=== PATIENT | female | born 1965 | race Two or more races ===

== ENCOUNTER 2024-01-28 10:12 | Outpatient (AMB) | payer MEDICAID, SELFPAY ==
--- NOTE | 2024-01-28 10:42 | HO.NEPHOV_ITS ---
Vital Signs 01/28/24 10:44 Height 5 ft 3 in Weight 169 lb BMI 29.9 BP 122/88 Blood Pressure Location Lt brachial Position Sitting Pulse 67 Pulse Source Pulse Oximeter Pulse Oximetry (%) 98 Oxygen Delivery Method Room Air Intake Visit Reasons: Follow up/ Confirmed Director Call Required: No Accompanied by: Self / Same As Patient Allergies No Known Allergies Allergy (Verified 01/28/24 10:46) HPI Comments Details: I had the privilege of seeing Miryam in consultation for taking over her renal transplant care. She had H/O donor transplant many years ago. She denies any H/O AMR or cellular rejection. She is compliant with her medications. She does not get recurrent UTI's. Her BP has been at goal. She is not a diabetic. She has no significant proteinuria. She has no side effects for immunosuppression. She has H/O hyperkalemia and had been on potassium lowering medications. Her BP has been at goal. She does not take any NSAID's and maintain good hydration. She does not see a automatic developer annually. She denies nausea, vomiting, diarrhea, chest pain, SOB, PND, orthopnea, pedal edema, urinary symptoms, pain over transplant, weight loss, hematuria. She feels well. [facility] Medical History (Updated 02/22/24 @ 11:02 by Wilmar Walker MD) CKD (chronic kidney disease) ESRD (end stage renal disease) Surgical History (Updated 01/28/24 @ 11:13 by Wilmar Walker MD) History of kidney transplant Family History (Updated 01/28/24 @ 10:51 by Ida Sharma MA) Mother Diabetes Maternal Aunt Cancer Maternal Uncle Cancer Social History (Updated 01/28/24 @ 10:52 by Ida Sharma MA) Alcohol intake: never Patient Tobacco Use Status: Never used Tobacco Physical Exam Vital Signs: Last Vital Signs Pulse 67 01/28/24 10:44 BP 122/88 01/28/24 10:44 Pulse Ox 98 01/28/24 10:44 Oxygen Delivery Method Room Air 01/28/24 10:44 BMI result Body Mass Index 29.9 Const General: comfortable and no acute distress Orientation/consciousness: patient oriented x3 HEENT Head: Yes normocephalic Mouth: Normal oral and palatal mucosa present Eyes EOM: EOMs intact bilaterally Neck Neck: Yes supple Resp Auscultation: clear to auscultation bilaterally Cardio Jugular venous distension: no JVD Rate: regular rate GI Palpation (GI): Soft to palpation Auscultation: normal bowel sounds General: Yes no CVA tenderness Back/Spine/Pelvis Back: no CVA tenderness Skin General skin exam: no rashes or lesions noted Neuro General: patient oriented x3 and moves all extremities Extrem General: Yes no pedal edema Results Reviewed Nephrology Results: No Data to Display Assessment & Plan Assessment & Plan (1) History of kidney transplant: Comment: 2015 Code(s): Z94.0 - Kidney transplant status Category: Surgical (2) Hypertension: Code(s): I10 - Essential (primary) hypertension Category: Medical Qualifiers: Hypertension type: primary hypertension Qualified Code(s): I10 - Essential (primary) hypertension Plan S/P renal transplant; Renal functions had been stable Blood pressure at goal; On MMF and tacrolimus( levels had been OK) No DM or significant proteinuria. No dermatological issues No side effects from immunosuppressive medications; Not on ACEI On Rayaldee. Divalents had been OK. On K lowering medications Tolerating lipid lowering medications.Needs annual dermatology appointment No NSAID's. Good hydration. Sun screens. Follow up labs ordered Discussed about post transplant care; Answered all questions Follow up appointment given Orders: Orders Creatinine 01/28/24 Z94.0 - Kidney transplant status Electrolytes 01/28/24 Z94.0 - Kidney transplant status Calcium 01/28/24 Z94.0 - Kidney transplant status Alanine Aminotransferase 01/28/24 Z94.0 - Kidney transplant status Complete Blood Count Auto Diff 01/28/24 Z94.0 - Kidney transplant status UA and rflx microscopic 01/28/24 Z94.0 - Kidney transplant status Blood Urea Nitrogen 01/28/24 Z94.0 - Kidney transplant status Aspartate Amino Transferase 01/28/24 Z94.0 - Kidney transplant status Tacrolimus Prograf 01/28/24 Z94.0 - Kidney transplant status Vitamin D 25-OH Total 01/28/24 Z94.0 - Kidney transplant status Parathyroid Hormone Intact 01/28/24 Z94.0 - Kidney transplant status Protein Creatinine Ratio, Ur 01/28/24 Z94.0 - Kidney transplant status
[2024-01-28 10:44] VITALS: BP 122/88; PULSE 67; O2SAT 98; BMI 29.9
== END 2024-01-28 11:23 | disposition home or self-care (01) ==
LOC: HO.HKAS 10:12
PROVIDERS: PCP Physician Assistant; Visit Provider Internal Medicine Nephrology
DX: Z94.0 Kidney transplant status (principal); I10 Essential (primary) hypertension
CPT/HCPCS: 99204

== ENCOUNTER → 2024-01-28 10:12 | Outpatient (BNVA) | payer MEDICAID, SELFPAY | PROVIDERS: Visit Provider Internal Medicine Nephrology | DX: I10 Essential (primary) hypertension (principal); Z94.0 Kidney transplant status | CPT/HCPCS: 99202 ==

== ENCOUNTER 2024-05-24 13:58 | Outpatient (AMB) | payer MEDICAID, SELFPAY ==
[2024-05-24 14:16] VITALS: BP 130/80; PULSE 74; O2SAT 97; BMI 29.8
--- NOTE | 2024-05-24 14:16 | HO.NEPHOV_ITS ---
Vital Signs 05/24/24 14:16 Height 5 ft 3 in Weight 168 lb 4 oz BMI 29.8 BP 130/80 Blood Pressure Location Lt brachial Position Sitting Pulse 74 Pulse Source Pulse Oximeter Pulse Oximetry (%) 97 Oxygen Delivery Method Room Air Intake Visit Reasons: 3 Month F/U/ Conf Spike Machine Operator Required: No Accompanied by: Self / Same As Patient Allergies No Known Allergies Allergy (Verified 05/24/24 14:17) HPI Comments Details: I had the privilege of seeing Miryam in follow up of her renal transplant care. She had H/O donor transplant many years ago ( 2016). She denies any H/O AMR or cellular rejection. She is compliant with her medications. She does not get recurrent UTI's. Her BP has been at goal. She is not a diabetic. She has no significant proteinuria. She has no side effects for immunosuppression. She has H/O hyperkalemia and had been on potassium lowering medications. Her BP has been at goal. She does not take any NSAID's and maintain good hydration. She does not see a design technology teacher annually. She denies nausea, vomiting, diarrhea, chest pain, SOB, PND, orthopnea, pedal edema, urinary symptoms, pain over transplant, weight loss, hematuria. She had 3 episodes of front headache with some left eye symptoms lasting for a few hours. Her tacrolimus level has been low . [facility] Medical History (Updated 02/22/24 @ 11:02 by Wilmar Walker MD) CKD (chronic kidney disease) ESRD (end stage renal disease) Surgical History History of kidney transplant Family History Mother Diabetes Maternal Aunt Cancer Maternal Uncle Cancer Social History Alcohol intake: never Patient Tobacco Use Status: Never used Tobacco Physical Exam Vital Signs: Last Vital Signs Pulse 74 05/24/24 14:16 BP 130/80 05/24/24 14:16 Pulse Ox 97 05/24/24 14:16 Oxygen Delivery Method Room Air 05/24/24 14:16 BMI result Body Mass Index 29.8 Const General: comfortable and no acute distress Orientation/consciousness: patient oriented x3 HEENT Head: Yes normocephalic Mouth: Normal oral and palatal mucosa present Eyes EOM: EOMs intact bilaterally Neck Neck: Yes supple Resp Auscultation: clear to auscultation bilaterally Cardio Jugular venous distension: no JVD Rate: regular rate GI Palpation (GI): Soft to palpation Auscultation: normal bowel sounds General: Yes no CVA tenderness Back/Spine/Pelvis Back: no CVA tenderness Skin General skin exam: no rashes or lesions noted Neuro General: patient oriented x3 and moves all extremities Extrem General: Yes no pedal edema Results Reviewed Nephrology Results: No Data to Display Assessment & Plan Assessment & Plan (1) History of kidney transplant: Comment: 2015 Code(s): Z94.0 - Kidney transplant status Category: Surgical (2) Hypertension: Code(s): I10 - Essential (primary) hypertension Category: Medical Qualifiers: Hypertension type: primary hypertension Qualified Code(s): I10 - Essential (primary) hypertension Plan S/P renal transplant; Renal functions had been stable Blood pressure at goal; On MMF and tacrolimus. Increased her envarsus to 2.5 mg No DM or significant proteinuria. No dermatological issues No side effects from immunosuppressive medications; Not on ACEI On Rayaldee- D/Carlos. Divalents had been OK. On K lowering medications Tolerating lipid lowering medications.Needs annual dermatology appointment No NSAID's. Good hydration. Sun screens. Follow up labs ordered Answered all questions; Follow up appointment given PCP needs to see re headaches urgently She needs DEXA scan by PCP Orders: Orders Tacrolimus Prograf 2 Months I10 - Essential (primary) hypertension, Z94.0 - Kidney transplant status Blood Urea Nitrogen 2 Months I10 - Essential (primary) hypertension, Z94.0 - Kidney transplant status Electrolytes 2 Months I10 - Essential (primary) hypertension, Z94.0 - Kidney transplant status Calcium 2 Months I10 - Essential (primary) hypertension, Z94.0 - Kidney transplant status Tacrolimus Prograf 1 Week I10 - Essential (primary) hypertension, Z94.0 - Kidney transplant status Creatinine 2 Months I10 - Essential (primary) hypertension, Z94.0 - Kidney transplant status Tacrolimus Prograf 1 Day I10 - Essential (primary) hypertension, Z94.0 - Kidney transplant status Medications: Changed From tacrolimus XR (Envarsus XR) 2.5 mg PO DAILY To tacrolimus XR (Envarsus XR) 2.5 mg (2.5 x 1 mg) PO DAILY 30 days 75 tabs 1RF Coding Level of Care Code Est Pt Level 4 (42147) Diagnoses History of kidney transplant Z94.0 Primary hypertension I10 Hypertension type: primary hypertension
== END 2024-05-24 15:09 | disposition home or self-care (01) ==
PROVIDERS: PCP Physician Assistant; Visit Provider Internal Medicine Nephrology
DX: Z94.0 Kidney transplant status (principal); I10 Essential (primary) hypertension
CPT/HCPCS: 99214

== ENCOUNTER → 2024-05-24 13:58 | Outpatient (BNVA) | payer MEDICAID, SELFPAY | PROVIDERS: PCP Physician Assistant; Visit Provider Internal Medicine Nephrology | DX: I10 Essential (primary) hypertension (principal); Z94.0 Kidney transplant status; Z79.899 Other long term (current) drug therapy | CPT/HCPCS: 99212 ==

== ENCOUNTER 2024-08-09 13:57 | Outpatient (AMB) | payer MEDICAID, SELFPAY ==
[2024-08-09 14:01] VITALS: BP 118/72; PULSE 73; O2SAT 97; BMI 29.6
--- NOTE | 2024-08-09 14:01 | HO.NEPHOV ---
Vital Signs 08/09/24 14:01 Height 5 ft 3 in Weight 167 lb 4 oz BMI 29.6 BP 118/72 Blood Pressure Location Lt brachial Position Sitting Pulse 73 Pulse Source Pulse Oximeter Pulse Oximetry (%) 97 Oxygen Delivery Method Room Air Intake Visit Reasons: 2 month follow up- Conf Hotel Or Motel Manager Required: No Accompanied by: Self / Same As Patient Allergies No Known Allergies Allergy (Verified 08/09/24 14:03) HPI Comments Details: I had the privilege of seeing Miryam in follow up of her renal transplant care. She had H/O donor transplant many years ago ( 2016). She denies any H/O AMR or cellular rejection. She is compliant with her medications. She does not get recurrent UTI's. Her BP has been at goal. She is not a diabetic. She has no significant proteinuria. She has no side effects for immunosuppression. She has H/O hyperkalemia and had been on potassium lowering medications. Her BP has been at goal. She does not take any NSAID's and maintain good hydration. She does not see a animal rides manager annually. She denies nausea, vomiting, diarrhea, chest pain, SOB, PND, orthopnea, pedal edema, urinary symptoms, pain over transplant, weight loss, hematuria. [facility] Medical History (Updated 02/22/24 @ 11:02 by Wilmar Walker MD) CKD (chronic kidney disease) ESRD (end stage renal disease) Surgical History History of kidney transplant Family History Mother Diabetes Maternal Aunt Cancer Maternal Uncle Cancer Social History Alcohol intake: never Patient Tobacco Use Status: Never used Tobacco Review of Systems Const All systems reviewed & are unremarkable except as noted in HPI and below Physical Exam Vital Signs: Last Vital Signs Pulse 73 08/09/24 14:01 BP 118/72 08/09/24 14:01 Pulse Ox 97 08/09/24 14:01 Oxygen Delivery Method Room Air 08/09/24 14:01 BMI result Body Mass Index 29.6 Const General: comfortable and no acute distress Orientation/consciousness: patient oriented x3 HEENT Head: Yes normocephalic Mouth: Normal oral and palatal mucosa present Eyes EOM: EOMs intact bilaterally Neck Neck: Yes supple Resp Auscultation: clear to auscultation bilaterally Cardio Jugular venous distension: no JVD Rate: regular rate GI Palpation (GI): Soft to palpation Auscultation: normal bowel sounds General: Yes no CVA tenderness Back/Spine/Pelvis Back: no CVA tenderness Skin General skin exam: no rashes or lesions noted Neuro General: patient oriented x3 and moves all extremities Extrem General: Yes no pedal edema Results Reviewed Nephrology Results: No Data to Display Assessment & Plan Assessment & Plan (1) History of kidney transplant: Comment: 2015 Code(s): Z94.0 - Kidney transplant status Category: Surgical (2) Hypertension: Code(s): I10 - Essential (primary) hypertension Category: Medical Qualifiers: Hypertension type: primary hypertension Qualified Code(s): I10 - Essential (primary) hypertension Plan S/P renal transplant; Renal functions had been stable Blood pressure at goal; On MMF and tacrolimus No DM or significant proteinuria. No dermatological issues No side effects from immunosuppressive medications; Not on ACEI On Rayaldee- D/Carlos. Divalents had been OK. On K lowering medications Tolerating lipid lowering medications.Needs annual dermatology appointment No NSAID's. Good hydration. Sun screens. Follow up labs ordered Answered all questions; Follow up appointment given Orders: Orders Vitamin D 25-OH Total 2 Months I10 - Essential (primary) hypertension, Z94.0 - Kidney transplant status Calcium 2 Months I10 - Essential (primary) hypertension, Z94.0 - Kidney transplant status Alanine Aminotransferase 2 Months I10 - Essential (primary) hypertension, Z94.0 - Kidney transplant status Aspartate Amino Transferase 2 Months I10 - Essential (primary) hypertension, Z94.0 - Kidney transplant status UA and rflx microscopic 2 Months I10 - Essential (primary) hypertension, Z94.0 - Kidney transplant status Protein Creatinine Ratio, Ur 2 Months I10 - Essential (primary) hypertension, Z94.0 - Kidney transplant status Lipid Panel 2 Months I10 - Essential (primary) hypertension, Z94.0 - Kidney transplant status Tacrolimus Prograf 2 Months I10 - Essential (primary) hypertension, Z94.0 - Kidney transplant status Creatinine 2 Months I10 - Essential (primary) hypertension, Z94.0 - Kidney transplant status Blood Urea Nitrogen 2 Months I10 - Essential (primary) hypertension, Z94.0 - Kidney transplant status Electrolytes 2 Months I10 - Essential (primary) hypertension, Z94.0 - Kidney transplant status Parathyroid Hormone Intact 2 Months I10 - Essential (primary) hypertension, Z94.0 - Kidney transplant status Phosphorus 2 Months I10 - Essential (primary) hypertension, Z94.0 - Kidney transplant status Medications: New levothyroxine 50 mcg PO DAILY 90 tabs 4RF Coding Level of Care Code Est Pt Level 4 (65255) Diagnoses History of kidney transplant Z94.0 Primary hypertension I10 Hypertension type: primary hypertension
== END 2024-08-09 14:29 | disposition home or self-care (01) ==
PROVIDERS: PCP Physician Assistant; Visit Provider Internal Medicine Nephrology
DX: Z94.0 Kidney transplant status (principal); I10 Essential (primary) hypertension
CPT/HCPCS: 99214

== ENCOUNTER → 2024-08-09 13:57 | Outpatient (BNVA) | payer MEDICAID, SELFPAY | PROVIDERS: PCP Physician Assistant; Visit Provider Internal Medicine Nephrology | DX: I10 Essential (primary) hypertension (principal); Z94.0 Kidney transplant status | CPT/HCPCS: 99212 ==

== ENCOUNTER 2024-10-20 13:13 | Outpatient (AMB) | payer MEDICAID, SELFPAY ==
--- OUTSIDE RECORDS SUMMARY | 2024-10-20 13:15 | XMS_ITS ---
Author Name [facility] Organization Unknown Problems Problem Status Onset Date Problem Type Date of Resoluti on Source Complication of transplanted kidney, unspecified complication active [facility]counter[facility]osisAct [facility]
--- OUTSIDE RECORDS SUMMARY | 2024-10-20 13:15 | XMS_ITS | Continuity of Care Document ---
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 Name Role Phone Sandrine Kerr Primary Care Physician [place] [facility] [place] 10/06/24 [facility] [address] [place] [address]- Attending Physician: Marylou Haynes Admitting Physician: Marylou Haynes Referring Physician: Marylou Haynes Encounter Type: Triage Allergies, Adverse Reactions, Alerts Substance Criticality Severity Reaction Reaction Severity Status Betadine C/O: itching C/O: itching Active Immunizations Given and Recorded Vaccine Date Status Refusal Reason SARS-CoV-2 (COVID-19) mRNA BNT-162b2 vac 05/16/21 Recorded influenza virus vaccine, inactivated 1 08/19/16 Gi juan francisco tetanus-diphtheria toxoids (Td) 2 03/14/15 Given influenza virus vaccine, live 3 06/10/14 Given Zoster Vaccine Live 4 09/16/13 Given pneumococcal 23-valent vaccine 5 08/14/12 Given Measles/Mumps/Rubella Virus Vaccine 6 06/21/12 Giv en Measles/Mumps/Rubella Virus Vaccine 7 05/07/12 Giv en tetanus/diphtheria/pertussis, acel(Tdap) 05/07/12 Given 1Admin Note: received VIS dated 06/08/15 2Admin Note: PCP 3Admin Note: Dialysis 4Admin Note: [facility] 5Admin Note: By Dialysis 6Admin Note: [facility] 7Admin Note: [facility] Medications Afluria Preservative-Free [id number] intramuscular suspension 0.5 mL, Intramuscular, Once, # 0.5 mL, 0 Refills, Soft Stop, 08/19/16 9:00:00 AM EDT Start Date: 08/19/16 Stop Date: 08/20/16 Status: Ordered Quantity: 0.5 Unit: mL Repeat number: 1 aspirin 81 mg oral delayed release tablet 81 mg, By Mouth, Daily, # 30 tablet, Refills 0, Tot. Refills 0, Maintenance, 09/02/24 11:14:00 AM EDT, Route to Pharmacy Electronically, [facility]/pharmacy #[id number], Partial fill upon patient request if the prescription is for a schedule II opioid drug., 155, cm, 09/02/24 10:57:00 EDT, Height, 75.8, kg, 08/31/24 23:28:00 EDT, Dry Weight Start Date: 09/02/24 Status: Ordered Quantity: 30.0 Unit: tablet Repeat number: 1 cyclobenzaprine 10 mg oral tablet 10 mg, 1, tablet, By Mouth, 3 times a day, Refills 0, Maintenance, 04/27/19 1:27:47 PM EDT Start Date: 04/27/19 Status: Ordered Repeat number: 1 Depakote 125 mg oral enteric coated tablet See Instructions, Week 1: 1 tab every night Week 2 and beyond: 2 tabs every night, # 60 tablet, 2 Refills, Maintenance, 09/22/24 1:59:00 PM EST, [facility]/pharmacy #[id number], Partial fill upon patient request if the prescription is for a schedule II opioid drug., 155, cm, 09/06/24 8:48:00 EST, Height, 75.8, kg, 08/31/24 23:28:00 EDT, Dry Weight Start Date: 09/22/24 Status: Ordered Quantity: 60.0 Unit: tablet Repeat number: 3 Envarsus XR 1 mg oral tablet, extended release 2 tablet = 2 mg, By Mouth, Daily in AM, 0 Refills, Maintenance, 09/01/24 1:51:00 AM EDT, Partial fill upon patient request if the prescription is for a schedule II opioid drug. Start Date: 09/01/24 Status: Ordered Repeat number: 1 estradiol 0.1 mg/g vaginal cream = 1 Gm, Vaginally, Daily at bedtime, take every night for two weeks then twice weekly, # 42.5 Gm, 11 Refills, Maintenance, 03/09/23 2:45:00 PM EDT, [facility]/pharmacy #[id number], Partial fill upon patient requestif the prescription is for a schedule II opioid drug., 160.6, cm, 03/09/23 13:56:00 EDT, Height, 76.7, kg, 03/09/23 13:56:00 EDT, Dry Weight Start Date: 03/09/23 Status: Ordered Quantity: 42.5 Unit: g Repeat number: 12 famotidine 20 mg oral tablet 20 mg, 1, tablet, By Mouth, Daily, # 30 tablet, Refills 5, Tot. Refills 5, Maintenance, 03/27/16 9:27:36 AM EDT, Route to Pharmacy Electronically, [facility]/pharmacy #[id number] Start Date: 03/27/16 Stop Date: 09/23/16 Status: Ordered Quantity: 30.0 Unit: tablet Repeat number: 6 gabapentin 100 mg oral capsule 200 mg, 2, capsule, By Mouth, 2 times a day, # 120 capsule, Refills 5, Tot. Refills 5, Maintenance,11/21/16 2:07:42 PM EST, Route to Pharmacy Electronically, [facility]/pharmacy #[id number] Start Date: 11/21/16 Stop Date: 05/20/17 Status: Ordered Quantity: 120.0 Unit: capsule Repeat number: 6 hydrOXYzine hydrochloride 50 mg oral tablet 1 tablet = 50 mg, By Mouth, 4 times a day, 0 Refills, Maintenance, 09/28/17 2:39:25 PM EST Start Date: 09/28/17 Status: Ordered Repeat number: 1 levothyroxine 0.05 mg oral tablet 1 tablet = 50 mcg, By Mouth, Daily, # 30 tablet, 5 Refills, Maintenance, 12/29/16 10:47:18 AM EST, Tablet, [facility]/pharmacy #[id number] Start Date: 12/29/16 Status: Ordered Quantity: 30.0 Unit: tablet Repeat number: 6 LORazepam 0.5 mg oral tablet 1 tablet = 0.5 mg, By Mouth, 3 times a day, 0 Refills, Maintenance, 04/27/19 1:27:36 PM EDT Start Date: 04/27/19 Status: Ordered Repeat number: 1 Magnesium Mineral Support = 400 mg, By Mouth, 2 times a day, 0 Refills, Maintenance, 12/14/23 3:25:00 PM EST, Partial fill upon patient request if the prescription is for a schedule II opioid drug. Start Date: 12/14/23 Status: Ordered Repeat number: 1 meclizine 25 mg oral tablet 1 tablet = 25 mg, By Mouth, 3 times a day, 0 Refills, Maintenance, 05/24/18 2:18:17 PM EDT Start Date: 05/24/18 Status: Ordered Repeat number: 1 metoprolol 50 mg oral tablet, extended release 50 mg, 1, tablet, By Mouth, Daily, # 90 tablet, Refills 4, Tot. Refills 4, Maintenance, 02/10/24 3:52:00 PM EDT, Route to Pharmacy Electronically, [facility]/pharmacy #[id number], Partial fill upon patient requestif the prescription is for a schedule II opioid drug., 161, cm, 02/10/24 15:34:00 EDT, Height, 77.2, kg, 11/27/23 14:56:00 EST, Dry Weight Start Date: 02/10/24 Stop Date: 05/05/25 Status: Ordered Quantity: 90.0 Unit: tablet Repeat number: 5 mycophenolic acid 180 mg oral delayed release tablet 3 tablet = 540 mg, By Mouth, 2 times a day, # 180 tablet, 11 Refills, Maintenance, 02/09/17 4:29:44 PM EDT, EC Tablet, [facility], please deliver Start Date: 02/09/17 Stop Date: 02/04/18 Status: Ordered Quantity: 180.0 Unit: tablet Repeat number: 12 nitroglycerin 0.4 mg sublingual tablet 1 tablet = 0.4 mg, Sublingual, Every 5 minutes, PRN for chest pain, # 100 tablet, 3 Refills, Maintenance, 02/10/24 3:50:00 PM EDT, Tablet, [facility]/pharmacy #[id number], 161, cm, 02/10/24 15:34:00 EDT, Height, 77.2, kg, 11/27/23 14:56:00 EST, Dry Weight Start Date: 02/10/24 Status: Ordered Quantity: 100.0 Unit: tablet Repeat number: 4 Nurtec ODT 75 mg oral tablet, disintegrating See Instructions, PRN as needed for migraine headache, 1 tablet By Mouth Every 24 hours as needed for migraine. not to exceed 75 mg in 24 hours, # 8 tablet, 5 Refills, Maintenance, 10/03/24 9:52:00 AMEST, DIS Tablet, [facility]/pharmacy #[id number], Partial fill upon patient request if the prescription is for aschedule II opioid drug., 155, cm, 09/06/24 8:48:00 EST, Height, 75.8, kg, 08/31/24 23:28:00 EDT, Dry Weight Start Date: 10/03/24 Status: Ordered Quantity: 8.0 Unit: tablet Repeat number: 6 Rayaldee 30 mcg oral capsule, extended release 1 capsule = 30 mcg, By Mouth, Daily at bedtime, 0 Refills, Maintenance, 09/28/17 2:39:08 PM EST Start Date: 09/28/17 Status: Ordered Repeat number: 1 rosuvastatin 5 mg oral tablet TAKE 1 TABLET BY MOUTH EVERY OTHER DAY Start Date: 02/10/24 Status: Ordered Repeat number: 1 traZODone 50 mg oral tablet 50 mg, 1, tablet, By Mouth, Refills 0, Maintenance, 03/22/24 1:31:00 PM EDT, Partial fill upon patient request if the prescription is for a schedule II opioid drug. Start Date: 03/22/24 Status: Ordered Repeat number: 1 valtassa valtassa, See Instructions, Refills 0, Maintenance, Every other day, 08/09/18 1:34:52 PM EDT, Compound Start Date: 08/09/18 Status: Ordered Repeat number: 1 vibegron 75 mg oral tablet 1 tablet = 75 mg, By Mouth, Daily, # 30 tablet, 5 Refills, Maintenance, 07/29/24 3:58:00 PM EDT, [facility]/pharmacy #[id number], Partial fill upon patient request if the prescription is for a schedule II opioid drug., 161, cm, 07/14/24 15:04:00 EDT, Height, 77.2, kg, 11/27/23 14:56:00 EST, Dry Weight Start Date: 07/29/24 Status: Ordered Quantity: 30.0 Unit: tablet Repeat number: 6 Problem List Condition Confirmation Course Effective Dates Status Health St atus Informant Chronic insomnia Confirmed Active Chronic kidney disease (CKD), dialysis modality undecided Confirmed Active End-stage renal disease (ESRD) Confirmed Active Obese class I Confirmed Active Obstructive sleep apnea Confirmed Active BMI 29.0-29.9,adult Confirmed Active Leg pain Confirmed Active PAT (paroxysmal atrial tachycardia) Confirmed Active Encounter for screening colonoscopy Confirmed Active SVT (supraventricular tachycardia) Confirmed Active Urinary incontinence Confirmed Active Social History Social History Type Response Smoking Status Never smoker entered on: 03/09/15 Sex Sex Representation Female (finding) Cardiology * Daisy Schaeffer: PERFORM Event Display: Cardiovascular Results Scanned Authored Date: Patient Care team information Care Team Personnel Name: Ida Sharma Position: [facility] AMB Nurse Member Role: Lifetime Consulting Physician Name: Ray Irene MD Position: [facility] Outreach Member Role: Lifetime Consulting Physician Address: [address] [facility] [address] [facility], [place] [address]- [place] Telecom: Name: Jadon Rodriguez MD Position: [facility] Renal MD Member Role: Lifetime Consulting Physician Address: [address] [place] [address] [address] [facility] [place] [address]- [place] Telecom: Name: Theodora Horner RN Position: [facility] RN Member Role: Primary Care Nurse Name: Sandrine Kerr Position: [facility] Outreach Member Role: PCP Address: [address] [place] [address]- [place] Telecom: Care Team Related Persons Name: LUIS DANIEL GUNTER Name: ISHAN REYES Insurance Providers Guarantor name: [facility] Information #: 1 Payer: [employer] Member Number: NA Policy Number: NA Group Number: NA
--- OUTSIDE RECORDS SUMMARY | 2024-10-20 13:15 | XMS_ITS | Continuity of Care Document ---
Author Organization [facility] Address [address] [place] [address]- Care Team Providers Care Sexer Name Role Phone Sandrine Kerr Primary Care Physician [phone] Encounter [facility] [place] Date(s): 09/12/24 - 10/12/24 [facility] [address] [place] [id number] Attending Physician: Admmireille, Ar8 Admitting Physician: Admtr, Ar8 Referring Physician: Admtr, Ar8 Encounter Type: Triage Allergies, Adverse Reactions, Alerts [...] Note: PCP 3Admin Note: Dialysis 4Admin Note: [facility] 5Admin Note: By Dialysis 6Admin Note: [facility] 7Admin Note: [facility] Medications Afluria Preservative-Free [id number] intramuscular suspension 0.5 mL, Intramuscular, Once, # 0.5 mL, 0 Refills, Soft Stop, 08/19/16 9:00:00 AM EDT Start Date: 08/19/16 Stop Date: 08/20/16 Status: Ordered Quantity: 0.5 Unit: mL Repeat number: 1 aspirin 81 mg oral delayed release tablet 81 mg, By Mouth, Daily, # 30 tablet, Refills 0, Tot. Refills 0, Maintenance, 09/02/24 11:14:00 AM EDT, Route to Pharmacy Electronically, [facility]/pharmacy #[id number], Partial fill upon patient request if [...] 2 Refills, Maintenance, 09/22/24 1:59:00 PM EST, [facility]/pharmacy #[id number], Partial fill upon patient request if [...] 11 Refills, Maintenance, 03/09/23 2:45:00 PM EDT, [facility]/pharmacy #[id number], Partial fill upon patient requestif the [...] 9:27:36 AM EDT, Route to Pharmacy Electronically, [facility]/pharmacy #[id number] Start Date: 03/27/16 Stop Date: 09/23/16 Status: Ordered Quantity: 30.0 Unit: tablet Repeat number: 6 gabapentin 100 mg oral capsule 200 mg, 2, capsule, By Mouth, 2 times a day, # 120 capsule, Refills 5, Tot. Refills 5, Maintenance,11/21/16 2:07:42 PM EST, Route to Pharmacy Electronically, [facility]/pharmacy #[id number] Start Date: 11/21/16 Stop Date: 05/20/17 [...] Refills, Maintenance, 12/29/16 10:47:18 AM EST, Tablet, [facility]/pharmacy #[id number] Start Date: 12/29/16 Status: Ordered Quantity: [...] 3:52:00 PM EDT, Route to Pharmacy Electronically, [facility]/pharmacy #[id number], Partial fill upon patient requestif the [...] Maintenance, 02/09/17 4:29:44 PM EDT, EC Tablet, [facility], please deliver Start Date: 02/09/17 Stop Date: 02/04/18 Status: Ordered Quantity: 180.0 Unit: tablet Repeat number: 12 nitroglycerin 0.4 mg sublingual tablet 1 tablet = 0.4 mg, Sublingual, Every 5 minutes, PRN for chest pain, # 100 tablet, 3 Refills, Maintenance, 02/10/24 3:50:00 PM EDT, Tablet, [facility]/pharmacy #[id number], 161, cm, 02/10/24 15:34:00 EDT, Height, [...] Refills, Maintenance, 10/03/24 9:52:00 AMEST, DIS Tablet, [facility]/pharmacy #[id number], Partial fill upon patient request if [...] 5 Refills, Maintenance, 07/29/24 3:58:00 PM EDT, [facility]/pharmacy #[id number], Partial fill upon patient request if [...] on: 03/09/15 Sex Sex Representation Female (finding) Patient Care team information Care Team Personnel Name: Ida Sharma Position: [facility] AMB Nurse Member Role: Lifetime Consulting Physician Name: Ray Irene MD Position: [facility] Outreach Member Role: Lifetime Consulting Physician Address: [address] [facility] [address] [facility], [place] [address]- [place] Telecom: Name: Jadon Rodriguez MD Position: [facility] Renal MD Member Role: Lifetime Consulting Physician Address: [address] [facility] [place] [address]- [place] Telecom: Name: Theodora Horner RN Position: [facility] RN Member Role: Primary Care Nurse Name: Sandrine Kerr Position: [facility] Outreach Member Role: PCP Address: [address] [place] [address]- [place] Telecom: Care Team Related Persons Name: LUIS DANIEL GUNTER Name: ISHAN REYES Insurance Providers Guarantor name: [employer] Plan Information #: 1 Payer: [employer] Member Number: NA Policy Number: NA Group Number: NA
--- OUTSIDE RECORDS SUMMARY | 2024-10-20 13:15 | XMS_ITS | Continuity of Care Document ---
Author Organization [facility] Address [address] [place] [address], [address], [address] [place] [address]- Care Team Providers Care Insulation Cutter Name Role Phone Sandrine Kerr Primary Care Physician [phone] [place] [facility] [place]24 [facility] [address], [address] [place] [address] Encounter Type: Triage Allergies, Adverse Reactions, Alerts [...] Note: PCP 3Admin Note: Dialysis 4Admin Note: [facility] 5Admin Note: By Dialysis 6Admin Note: [facility] 7Admin Note: [facility] Medications Afluria Preservative-Free [id number] intramuscular suspension 0.5 mL, Intramuscular, Once, # 0.5 mL, 0 Refills, Soft Stop, 08/19/16 9:00:00 AM EDT Start Date: 08/19/16 Stop Date: 08/20/16 Status: Ordered Quantity: 0.5 Unit: mL Repeat number: 1 aspirin 81 mg oral delayed release tablet 81 mg, By Mouth, Daily, # 30 tablet, Refills 0, Tot. Refills 0, Maintenance, 09/02/24 11:14:00 AM EDT, Route to Pharmacy Electronically, [facility]/pharmacy #[id number], Partial fill upon patient request if [...] 2 Refills, Maintenance, 09/22/24 1:59:00 PM EST, [facility]/pharmacy #[id number], Partial fill upon patient request if [...] 11 Refills, Maintenance, 03/09/23 2:45:00 PM EDT, [facility]/pharmacy #[id number], Partial fill upon patient requestif the [...] 9:27:36 AM EDT, Route to Pharmacy Electronically, [facility]/pharmacy #[id number] Start Date: 03/27/16 Stop Date: 09/23/16 Status: Ordered Quantity: 30.0 Unit: tablet Repeat number: 6 gabapentin 100 mg oral capsule 200 mg, 2, capsule, By Mouth, 2 times a day, # 120 capsule, Refills 5, Tot. Refills 5, Maintenance,11/21/16 2:07:42 PM EST, Route to Pharmacy Electronically, [facility]/pharmacy #[id number] Start Date: 11/21/16 Stop Date: 05/20/17 [...] Refills, Maintenance, 12/29/16 10:47:18 AM EST, Tablet, [facility]/pharmacy #[id number] Start Date: 12/29/16 Status: Ordered Quantity: [...] 3:52:00 PM EDT, Route to Pharmacy Electronically, [facility]/pharmacy #[id number], Partial fill upon patient requestif the [...] Maintenance, 02/09/17 4:29:44 PM EDT, EC Tablet, [facility], please deliver Start Date: 02/09/17 Stop Date: 02/04/18 Status: Ordered Quantity: 180.0 Unit: tablet Repeat number: 12 nitroglycerin 0.4 mg sublingual tablet 1 tablet = 0.4 mg, Sublingual, Every 5 minutes, PRN for chest pain, # 100 tablet, 3 Refills, Maintenance, 02/10/24 3:50:00 PM EDT, Tablet, [facility]/pharmacy #[id number], 161, cm, 02/10/24 15:34:00 EDT, Height, [...] Refills, Maintenance, 10/03/24 9:52:00 AMEST, DIS Tablet, [facility]/pharmacy #[id number], Partial fill upon patient request if [...] 03/22/24 Status: Ordered Repeat number: 1 valtassa arslana, See Instructions, Refills 0, Maintenance, Every other day, 08/09/18 1:34:52 PM EDT, Compound Start Date: 08/09/18 Status: Ordered Repeat number: 1 vibegron 75 mg oral tablet 1 tablet = 75 mg, By Mouth, Daily, # 30 tablet, 5 Refills, Maintenance, 07/29/24 3:58:00 PM EDT, [facility]/pharmacy #[id number], Partial fill upon patient request if [...] Care Team Personnel Name: Ida Sharma Position: [facility] AMB Nurse Member Role: Lifetime Consulting Physician Name: Ray Irene MD Position: [facility] Outreach Member Role: Lifetime Consulting Physician Address: [address] [facility] [facility] [place] [address] [place] Telecom: Name: Jadon Rodriguez MD Position: [facility] Renal MD Member Role: Lifetime Consulting Physician Address: [address] [place] [address] [address] [facility] [place] [address]- [place] Telecom: Name: Theodora Horner RN Position: [facility] RN Member Role: Primary Care Nurse Name: Sandrine Kerr Position: [facility] Outreach Member Role: PCP Address: [address] [place] [address]- [place] Telecom: Care Team Related Persons Name: LUIS DANIEL GUNTER Name: ISHAN REYES Insurance Providers Guarantor name: [facility] Plan Information #: 1 Payer: [facility] Member Number: NA Policy Number: NA Group Number: NA
--- NOTE | 2024-10-20 13:33 | HO.NEPHOV_ITS ---
Vital Signs 10/20/24 13:34 Height 5 ft 3 in Weight 171 lb 6 oz BMI 30.4 BP 112/60 Blood Pressure Location Lt brachial Position Sitting Pulse 74 Pulse Source Pulse Oximeter Pulse Oximetry (%) 98 Oxygen Delivery Method Room Air Intake Visit Reasons: 2 month follow up Recovery Unit Operator Required: No Accompanied by: Self / Same As Patient Allergies No Known Allergies Allergy (Verified 10/20/24 13:34) HPI Comments Details: Miryam was seen in follow up of her renal transplant care. She had H/O donor transplant many years ago ( 2015). 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 She is following up with neurologist and is going to see hematology to R/O hypercoagulable disorder. She denies any H/O AMR or cellular rejection. She is compliant with her medications. She does not get recurrent UTI's. Her BP has been at goal. She is not a diabetic. She has no significant proteinuria. She has no side effects for immunosuppression. She has H/O hyperkalemia and had been on potassium lowering medications. Her BP has been at goal. She does not take any NSAID's and maintain good hydration. She does not see a tobacco blender annually. She denies nausea, vomiting, diarrhea, chest pain, SOB, PND, orthopnea, pedal edema, urinary symptoms, pain over transplant, weight loss, hematuria. [facility] Medical History (Updated 02/22/24 @ 11:02 by Wilmar Walker MD) CKD (chronic kidney disease) ESRD (end stage renal disease) Surgical History History of kidney transplant Family History Mother Diabetes Maternal Aunt Cancer Maternal Uncle Cancer Social History Alcohol intake: never Patient Tobacco Use Status: Never used Tobacco Review of Systems Const All systems reviewed & are unremarkable except as noted in HPI and below Physical Exam Vital Signs: Last Vital Signs Pulse 74 10/20/24 13:34 BP 112/60 10/20/24 13:34 Pulse Ox 98 10/20/24 13:34 Oxygen Delivery Method Room Air 10/20/24 13:34 BMI result Body Mass Index 30.4 Const General: comfortable and no acute distress Orientation/consciousness: patient oriented x3 HEENT Head: Yes normocephalic Mouth: Normal oral and palatal mucosa present Eyes EOM: EOMs intact bilaterally Neck Neck: Yes supple Resp Auscultation: clear to auscultation bilaterally Cardio Jugular venous distension: no JVD Rate: regular rate GI Palpation (GI): Soft to palpation Auscultation: normal bowel sounds General: Yes no CVA tenderness Back/Spine/Pelvis Back: no CVA tenderness Skin General skin exam: no rashes or lesions noted Neuro General: patient oriented x3 and moves all extremities Extrem General: Yes no pedal edema Results Reviewed Nephrology Results: No Data to Display Assessment & Plan Assessment & Plan (1) History of kidney transplant: Comment: 2015 Code(s): Z94.0 - Kidney transplant status Category: Surgical (2) Hypertension: Code(s): I10 - Essential (primary) hypertension Category: Medical Qualifiers: Hypertension type: primary hypertension Qualified Code(s): I10 - Essential (primary) hypertension Plan S/P renal transplant; Renal functions had been stable Blood pressure at goal; On MMF and tacrolimus No DM or significant proteinuria. No dermatological issues No side effects from immunosuppressive medications; Not on ACEI Started Rayaldee . Divalents had been OK. On K lowering medications Tolerating lipid lowering medications.Needs annual dermatology appointment No NSAID's. Good hydration. Sun screens. Follow up labs ordered Answered all questions; Follow up appointment given Orders: Orders Phosphorus 2 Months I10 - Essential (primary) hypertension, Z94.0 - Kidney transplant status Tacrolimus Prograf 2 Months I10 - Essential (primary) hypertension, Z94.0 - Kidney transplant status Hemoglobin A1c 2 Months I10 - Essential (primary) hypertension, Z94.0 - Kidney transplant status Complete Blood Count Auto Diff 2 Months I10 - Essential (primary) hypertension, Z94.0 - Kidney transplant status Electrolytes 2 Months I10 - Essential (primary) hypertension, Z94.0 - Kidney transplant status Blood Urea Nitrogen 2 Months I10 - Essential (primary) hypertension, Z94.0 - Kidney transplant status Creatinine 2 Months I10 - Essential (primary) hypertension, Z94.0 - Kidney transplant status Calcium 2 Months I10 - Essential (primary) hypertension, Z94.0 - Kidney transplant status Magnesium 2 Months I10 - Essential (primary) hypertension, Z94.0 - Kidney transplant status Protein Creatinine Ratio, Ur 2 Months I10 - Essential (primary) hypertension, Z94.0 - Kidney transplant status Medications: New magnesium oxide 400 mg PO BID 90 days 180 tabs 4RF Coding Level of Care Code Est Pt Level 4 (10971) Diagnoses History of kidney transplant Z94.0 Primary hypertension I10 Hypertension type: primary hypertension
[2024-10-20 13:34] VITALS: BP 112/60; PULSE 74; O2SAT 98; BMI 30.4
== END 2024-10-20 14:00 | disposition home or self-care (01) ==
PROVIDERS: PCP Physician Assistant; Visit Provider Internal Medicine Nephrology
DX: Z94.0 Kidney transplant status (principal); I10 Essential (primary) hypertension
CPT/HCPCS: 99214

== ENCOUNTER → 2024-10-20 13:13 | Outpatient (BNVA) | payer MEDICAID, SELFPAY | PROVIDERS: PCP Physician Assistant; Visit Provider Internal Medicine Nephrology | DX: I10 Essential (primary) hypertension (principal); Z94.0 Kidney transplant status | CPT/HCPCS: 99212 ==

== ENCOUNTER 2025-01-03 11:45 | Outpatient (AMB) | payer MEDICAID, SELFPAY ==
--- NOTE | 2025-01-03 11:55 | HO.NEPHOV_ITS ---
Vital Signs 01/03/25 11:56 Height 5 ft 3 in Weight 173 lb BMI 30.6 BP 138/80 Blood Pressure Location Lt brachial Position Sitting Pulse 60 Pulse Source Pulse Oximeter Pulse Oximetry (%) 98 Oxygen Delivery Method Room Air Intake Visit Reasons: 2 month follow up-Conf Instrument Person Required: No Accompanied by: Self / Same As Patient Allergies No Known Allergies Allergy (Verified 01/03/25 11:56) HPI Comments Details: Miryam was seen in follow up of her renal transplant care. She had H/O donor transplant many years ago ( 2015). 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 She is following up with neurologist and is going to see hematology to R/O hypercoagulable disorder. She denies any H/O AMR or cellular rejection. She is compliant with her medications. She does not get recurrent UTI's. Her BP has been at goal. She is not a diabetic. She has no significant proteinuria. She has no side effects for immunosuppression. She has H/O hyperkalemia and had been on potassium lowering medications. Her BP has been at goal. She does not take any NSAID's and maintain good hydration. She does not see a automotive software engineer annually. She denies nausea, vomiting, diarrhea, chest pain, SOB, PND, orthopnea, pedal edema, urinary symptoms, pain over transplant, weight loss, hematuria. [facility] Medical History (Updated 02/22/24 @ 11:02 by Wilmar Walker MD) CKD (chronic kidney disease) ESRD (end stage renal disease) Surgical History History of kidney transplant Family History Mother Diabetes Maternal Aunt Cancer Maternal Uncle Cancer Social History Alcohol intake: never Patient Tobacco Use Status: Never used Tobacco Review of Systems Const All systems reviewed & are unremarkable except as noted in HPI and below Physical Exam Vital Signs: Last Vital Signs Pulse 60 01/03/25 11:56 BP 138/80 01/03/25 11:56 Pulse Ox 98 01/03/25 11:56 Oxygen Delivery Method Room Air 01/03/25 11:56 BMI result Body Mass Index 30.6 Const General: comfortable and no acute distress Orientation/consciousness: patient oriented x3 HEENT Head: Yes normocephalic Mouth: Normal oral and palatal mucosa present Eyes EOM: EOMs intact bilaterally Neck Neck: Yes supple Resp Auscultation: clear to auscultation bilaterally Cardio Jugular venous distension: no JVD Rate: regular rate GI Palpation (GI): Soft to palpation Auscultation: normal bowel sounds General: Yes no CVA tenderness Back/Spine/Pelvis Back: no CVA tenderness Skin General skin exam: no rashes or lesions noted Neuro General: patient oriented x3 and moves all extremities Extrem General: Yes no pedal edema Results Reviewed Nephrology Results: No Data to Display Assessment & Plan Assessment & Plan (1) History of kidney transplant: Comment: 2015 Code(s): Z94.0 - Kidney transplant status Category: Surgical (2) Hypertension: Code(s): I10 - Essential (primary) hypertension Category: Medical Qualifiers: Hypertension type: primary hypertension Qualified Code(s): I10 - Essential (primary) hypertension Plan S/P renal transplant; Renal functions had been stable Blood pressure at goal; On MMF and tacrolimus No DM or significant proteinuria. No dermatological issues No side effects from immunosuppressive medications; Not on ACEI On Rayaldee . Divalents had been OK. On K lowering medications Tolerating lipid lowering medications.Needs annual dermatology appointment No NSAID's. Good hydration. Sun screens. Follow up labs ordered Answered all questions; Follow up appointment given Orders: Orders Complete Blood Count Auto Diff 3 Months I10 - Essential (primary) hypertension, Z94.0 - Kidney transplant status Blood Urea Nitrogen 3 Months I10 - Essential (primary) hypertension, Z94.0 - Kidney transplant status Electrolytes 3 Months I10 - Essential (primary) hypertension, Z94.0 - Kidney transplant status Calcium 3 Months I10 - Essential (primary) hypertension, Z94.0 - Kidney transplant status Phosphorus 3 Months I10 - Essential (primary) hypertension, Z94.0 - Kidney transplant status Magnesium 3 Months I10 - Essential (primary) hypertension, Z94.0 - Kidney transplant status Tacrolimus Prograf 3 Months I10 - Essential (primary) hypertension, Z94.0 - Kidney transplant status Creatinine 3 Months I10 - Essential (primary) hypertension, Z94.0 - Kidney transplant status Medications: New gabapentin 300 mg (1/2 x 600 mg) PO BID 90 days 90 tabs 4RF Coding Level of Care Code Est Pt Level 4 (00803) Diagnoses History of kidney transplant Z94.0 Primary hypertension I10 Hypertension type: primary hypertension
[2025-01-03 11:56] VITALS: BP 138/80; PULSE 60; O2SAT 98; BMI 30.6
--- OUTSIDE RECORDS SUMMARY | 2025-01-03 14:56 | XMS_ITS | Clinical Summary ---
Author Organization [facility] Address [facility] [address] [place] [address] Care Team Providers Care Crystal Mounter Name Role Phone Pedro Brit DICKINSON Primary Care Provider + [phone] Source Comments PLEASE NOTE, if this patient is a minor, it may be UNLAWFUL to discuss sensitive information that is contained in these records (such as FAMILY PLANNING, MENTAL HEALTH or SUBSTANCE ABUSE) with the minor patient's parent or other person without the patient's specific authorization.[facility] Allergies Active Allergy Reactions Criticality Noted Date Comments Povidone-Iodine 12/10/2021 Other reaction(s): C/O: itching, C/O: itching Other reaction(s): Other (see comments) Medications hydrOXYzine (ATARAX) 10 mg tablet TAKE 1 TABLET BY MOUTH 2 TIMES A DAY, NEEDED FOR ITCHING 1 06/09/20 16 Active levothyroxine (SYNTHROID, LEVOTHROID) 50 mcg tablet Take 50 mcg by mouth once daily Per Dr Williamson 11 09/13/20 16 Active Mycophenolate Sodium 180 mg TbECIndications:S/ P kidney transplant Take 2 Tabs by mouth 2 (two) times daily PER NEPHRO 07/14/20 17 Active calcifediol (RAYALDEE) 30 mcg [id number]:Hy perparathyroidism (HCC-CMS) Take 30 mcg by mouth every other day PER NEPHRO 07/14/20 17 Active mirabegron (MYRBETRIQ) 50 mg Hr55Urjxjgmvqke:OA B (overactive bladder) Take 1 Tab by mouth once daily PER UROLOGY 09/14/20 18 Active VELTASSA 16.8 gram pwpk TAKE 1 PACKET BY MOUTH TWICE A WEEK 4 09/12/20 18 Active magnesium oxide (MAG-OX) 400 mg (241.3 mg magnesium) tablet Take 1 Tab by mouth 2 (two) times daily 11 08/18/20 18 Active acetaminophen (TYLENOL) 500 mg tabletIndications: Primary osteoarthritis involving multiple joints Take 1 Tab by mouth 3 (three) times daily as needed for pain 90 Tab 1 04/21/20 19 Active traMADoL (ULTRAM) 50 mg tabletIndications: Chronic pain of right knee Take 1 Tab by mouth every 6 (six) hours as needed for pain 20 Tab 01/05/20 20 Active leg brace (KNEE BRACE LARGE-XLARGE)Indic ations:Chronic pain of right knee DX Knee pain - Knee brace to wear daily - remove for care 1 Each 01/06/20 20 Active diclofenac sodium (VOLTAREN) 1 % gelIndications:Chr onic pain of right knee APPLY 2 GRAM TO AFFECTED AREA THREE TIMES A DAY NEEDED FOR PAIN 100 g 3 07/09/20 20 Active lidocaine (LIDODERM) 5 % patch APPLY TOPICALLY TO AFFECTED AREA AT BEDTIME DAILY. LEAVE ON FOR 12 HOURS THEN REMOVE FOR 12 HOURS 06/26/20 21 Active rosuvastatin (CRESTOR) 5 mg tablet Take 1 Tablet by mouth every other day 05/17/20 21 Active nitroglycerin (NITROSTAT) 0.[address] 1 Tablet under the tongue Active gabapentin (NEURONTIN) 100 mg capsule TAKE 3 CAPSULES BY MOUTH TWICE A DAY 06/30/20 21 Active meclizine (ANTIVERT) 25 mg tablet Take 25 mg by mouth 02/21/20 21 Active patiromer calcium sorbitex (VELTASSA) 16.8 gram pwpk 1 Packet by miscellaneous route 09/04/20 20 Active cyclobenzaprine (FLEXERIL) 10 mg tablet Take 1 Tablet by mouth Active fluticasone furoate (FLONASE SENSIMIST) 27.5 mcg/actuation nasal spray Place 1 [place] into the nostril(s) 02/22/20 21 Active tacrolimus (ENVARSUS XR) 1 mg Tb24 Take 1 mg by mouth daily 09/02/20 21 Active famotidine (PEPCID) 20 mg tablet Take 20 mg by mouth once Sometimes takes two times as needed Active polyethylene glycol, PEG, 3350 (GLYCOLAX) 17 gram/dose powderIndications: Slow transit constipation Take 17 g by mouth once daily 510 g 1 01/05/20 [address] Active aspirin [address] tablet Take 1 Tablet by mouth once daily 90 Tablet 4 10/03/20 24 Active traZODone (DESYREL) 50 mg tablet Take 0.5 or 1 tablet at bedtime 30 Tablet 3 11/23/19 25 Active sertraline (ZOLOFT) 50 mg tablet Take 1 Tablet by mouth once daily for 120 days 30 Tablet 3 11/23/19 25 025 Active cholecalciferol (VITAMIN D-3) 50 mcg (2,000 unit) tabletIndications: Mild vitamin D deficiency Take 1 Tablet by mouth once daily 90 Tablet 3 11/23/19 25 Active Active Problems Problem Noted Date Diagnosed Date COMPLEX migraines 09/09/2024 Overview (09/09/2024): Assessment/Plan Question of complex migraines : chronic daily migraines. Already on metoprolol , gabapentin (with some associated drowsiness/ dizziness), and magnesium. Would not use topiramate with her renal hx. Already on 2 serotonergic meds (trazodone/ sertraline) and would not favor starting a tricyclic in her age group d/t risk of anticholinergic side effects. Options for prevention include valproic acid (very low dose)- if supply cataloguer (Dr. Wilmar Walker) ok with this. Reviewed potential side effects; pt is postmenopausal; discussed that low dose would be a/w lower side effect risk. For prn migraine care would use nurtec or ubrelvy (if ok with supply cataloguer) Avoid triptan d/t cardiac hx and known occlusive intracranial thrombus Limit tylenol to 3 doses per week if possible to reduce risk of rebound headache Avoid fioricet d/t risk of rebound headache Workup for intracranial thrombus: No stroke seen on recent MRI. antiphospholipid Abs negative. F/u with Cardiology regarding heart monitor. Continue aspirin and statin. Will contact Stroke doctor to determine if any further testing/ treatment needed. f/u 2-3 months Opportunity for questions provided and pt in agreement with plans outlined above . 60 minutes spent in review of record, evaluation of the patient, patient education/ counselling, and coordination of care. Intracranial THROMBUS 08/202409/09/2024 Overview (09/09/2024): Headache (R51.9) CVA (cerebrovascular accident) (I63.9) Patient passed bedside swallow eval Seen by neurology and aspirin 81 mg daily Continue rosuvastatin MRI brain, MRA head/neck with the following findings: 1. No restricted diffusion to indicate an acute infarct. 2. Occlusive thrombus within the proximal P2 segment of the RIGHT posterior cerebral with distal reconstitution on the postcontrast images. Absence of flow-related enhancement of the contrast-enhanced reconstituted segments is compatible with significantly diminished flow. 3. Irregularity of the proximal extracranial right ICA with linear low signal compatible with a dissection flap. CTA of the neck can be obtained for confirmation. If there is a contraindication to CT contrast, carotid sonography can be obtained for further evaluation. 4. Scattered small FLAIR bright foci within the supratentorial white matter are nonspecific, but are compatible with chronic microangiopathic/small vessel ischemic change. Discussed MRI findings with neurology, recommend aspirin 81 mg daily They recommend hypercoagulable workup including d-dimer, lupus anticoagulant panel, antiphospholipid abs. They do not recommend DOAC, recommend just continuing aspirin for now and obtaining a carotid duplex inpatient. Since carotid duplex is unremarkable, they recommend discharge on aspirin alone. Fioricet and tylenol as needed for headache; neurology arranging outpatient follow up for headache PCP follow up on the above hypercoagulability workup, and recommend outpatient hematology evaluation. Cardiology follow up also recommended to patient - for ECHO and outpatient holter monitor to determine if she will benefit from DOAC from a cardiology standpoint. Discussed with neurology team, they state cardiology evaluation can be done as an outpatient. Diverticulosis 01/05/2024 Overview (01/05/2024): Presented on 11/27/23 at [facility] treated for diverticulitis End-stage renal disease ([facility]) 01/09/2023 Class 1 obesity 01/09/2023 Chronic kidney disease (CKD), dialysis modality undecided 01/09/2023 Elevated BP without diagnosis of hypertension LGSIL on Pap smear of cervix 08/07/2022 Overview (08/07/2022): 2017 PTSD (post-traumatic stress disorder) 08/07/2022 ALBERT (generalized anxiety disorder) 08/07/2022 Santo cyst, right 07/28/2021 Overview (07/28/2021): MRI right knee (06/30/2020) 1. Complex tearing of the medial meniscus with tibial articular surface and inner margin oblique components. 2. Minimal fraying of the lateral meniscal body inner margin. 3. Edema adjacent to the medial collateral ligament, likely related to the adjacent meniscal tear. A grade 1 sprain could be considered in the appropriate clinical setting. 4. Bpnksnls-wr-clkzfl medial as well as lmbj-ef-gxynjseu lateral and mild patellofemoral compartment osteoarthritis. Large joint effusion with multiple small loose bodies. Moderate Santo's cyst. Stenosis due to other logistics intern al prosthetic devices, implants and grafts, initial encounter 05/14/2021 Acquired pure red cell aplasia, unspecified (HCC -CMS) 01/18/2021 Secondary hyperparathyroidism of renal origin (H CC-CMS) 01/18/2021 Chronic neck pain 09/14/2018 Overview (01/21/2023): 09/01/17 - C-spine xray: straightening of the cervical lordosis c/w muscle spasm. There is DDD at the C6-C7 level. 10/15/17 - MRI cervical spine: multilevel b/l facet arthrosis L>R, severe discogenic degenerative changes at C6-C7 with spondylosis at this level, small central disc herniation at C5-C6 w/o cord impingement, no significant canal stenosis, only mild-moderate degree of foraminal narrowing, upper thoracic facet arthrosis 03/29/19 - F/U Dr. Loera Rheum at [facility]: Pt has developed L sided upper trap muscle due to DJD. Plan: flexeril x 20 days. F/U PRN Primary osteoarthritis involving multiple joints 06/09/2018 Overview (06/09/2018): 06/08/18 - Seen by Rheum for knee and multiple other joint pains and stiffness. Referred by Dr. Williamson. Dx: OA of R knee. Offered injection but pt wants to ask Dr. Williamson first. Suggested pt try Blue Emu cream on hands to reduce stiffness and pain of other joints. She can also be referred to [facility] for steroid injections of C6- C7. F/U PRN. Degenerative joint disease involving multiple tee ints 06/09/2018 Overview (07/22/2021): 06/08/18 - Seen by Rheum for knee and multiple other joint pains and stiffness. Referred by Dr. Williamson. Dx: OA of R knee. Offered injection but pt wants to ask Dr. Williamson first. Suggested pt try Blue Emu cream on hands to reduce stiffness and pain of other joints. She can also be referred to [facility] for steroid injections of C6- C7. F/U PRN. Multiple lung nodules on CT 02/16/17 05/12/2018 Overview (05/12/2018): 02/16/17 - CT Chest W/O: There is a 2 mm parenchymal nodule in the right base. Additional 2 mm in R lower lobe. 3mm parenchymal nodule abutting a minor fissure. No suspicious nodules or masses identified. Impression: Multiple parenchymal nodules as dscribed measuring less than 4 mm probably post imflammatory or post infectious in nature. Chronic pain of right knee 09/14/2017 Overview (01/21/2023): Synovial cyst of right popliteal space 07/28/2021 Overview: ?? MRI right knee (06/30/2020) 1. Complex tearing of the medial meniscus with tibial articular surface and inner margin oblique components. 2. Minimal fraying of the lateral meniscal body inner margin. 3. Edema adjacent to the medial collateral ligament, likely related to the adjacent meniscal tear. A grade 1 sprain could be considered in the appropriate clinical setting. 4. Qtrmzzuf-ab-udqqio medial as well as hgpb-qn-aqgjbdou lateral and mild patellofemoral compartment osteoarthritis. Large joint effusion with multiple small loose bodies. Moderate Santo's cyst. Chronic right-sided low back pain with right-kateryna ed sciatica 07/14/2017 Overview (09/20/2018): 10/01/17 - [facility]: c/o burning discomfort in nec, low back moving down R anterior leg, RUE weakness. Plan: tiral increasing Gabapentin to 300 mg TID, Reviewed c-spine and L -spine xray = degenerative changes. Will check f/u MRI of c-spine and L-spine. consider LE EMG upon review of MRI. F/U 3 mos. 10/15/17 - MRI Lumbar spine w/o contrast: minimal multilevel discogenic degenerative change and minor degrees of anterior marginal endplate spurring throughout the lumbar spine with mild degrees of facet arthrosis at L4-L5 and a tiny central transverse annular fissure at L5-S1 no significant canal or neural foraminal compromise; anterior marginal spondylosis and degenerative endplate changes T11-T12 Carpal tunnel syndrome of right wrist 07/08/2017 Overview (07/28/2021): Seen RAE Garcia 06/25/17 Seen RAE Garcia 06/25/17 Acquired hypothyroidism 09/05/2016 Urinary incontinence 09/05/2016 Overview (08/07/2022): 11/14/17 - UROLOGY: Pt has been tried on oxybutynin, darifenancin, trospium, and myrbetric. Myrbetric was not helping. Oxybutynin was more effective on LUTS but she was advised to d/c as mcfp use could cause mental status change. Pt interested in other medication option. Urology has no more to offer. Suggested Dr. Borjas for his opinion on surgery. 11/14/17 - UROLOGY: Pt has been tried on oxybutynin, darifenancin, trospium, and myrbetric. Myrbetric was not helping. Oxybutynin was more effective on LUTS but she was advised to d/c as mcfp use could cause mental status change. Pt interested in other medication option. Urology has no more to offer. Suggested Dr. Borjas for his opinion on surgery. Neuropathy 06/24/2016 Overview (07/28/2021): Upper and lower ext needle likle sensation, chronic, since on Hemodialysis. Cont after transplant EMG upper extremities done 05/21/17 at [facility] = mild right median neuropathy Upper and lower ext needle likle sensation, chronic, since on Hemodialysis. Cont after transplant EMG upper extremities done 05/21/17 at [facility] = mild right median neuropathy S/P kidney transplant left due to ESRD of unknown etiology, [facility]. [facility] 02/03/2014 Overview (04/29/2023): 04/2023 Miryam Calero is a 57 y.o. female who presents to the transplant clinica for follow up. She is doing well and doesn't have any specific complaints. She is planning on getting some dental work done soon and was hoping to be prescribed prophylactic abx. She also reports some pain on the plantar aspect of her left foot which is worse after sitting down for a bit and walking and goes away with walking. Her symptoms appear to be c/w plantar fascitis. She was advised to wear sneakers with good arch, heel support and apply some voltaren gel for symptomatic relief. In case of no improvement, she was asked to talk to her PCP or see a collections professional. Her Cr has been stable. BP has been well controlled. Good UOP. No proteinuria with optimal volume status. She continues to be on Valtessa MWF for hyperkalemia thought to be secodary to tacrolimus. Compliant with immunosuppressives. Seeing Oumar Williamson ([facility]). Last seen 01/22/2023. A/p below Continue current immunosuppression and adjust doses according to drug levels. Labs all stable Will prescribe amoxicillin for dental prophylaxis. All questions answered. Renal Kidney transplant US is wnl Bladder discomfort Bladder US WNL Will f/u with urology RTC x 3 months. Transplant Issues: no complications from the transplant Immunosuppression Regimen: Induction: campath Maintenance: MMF and tacro Baseline Creatinine: 1.1 Rejection History and Treatment: no history of rejection Nephro f/u Dr. Williamson- surgery done at [facility] 11/04/17 - NEPHRO: 1 year biopsy shows focal IgA mesangial deposits of unclear significance. Renal function stable. Will monitor tacro and MMF level and adjust as needed. Hyperkalemia (being managed with diet restriction, may consider Kyexalate if remains a problem). Baseline Cr: 1.3. 01/11/18 - NEPHRO F/U. Tacro level high adjust dose 03/17/18 - NEPHRO F/U. No changes 05/26/18 - will see rheum 07/21/18 - NEPHRO F/U: no changes 11/17/18 - NEPHRO F/U: Hyperkalemia treated with diet restriction and on Veltassa. Will transition her to QD Tacrolimus (Inversis) 2.5 mg QD 01/18/19 - NEPHRO F/U: Changed to Evarsus due to persistent hyperkalemia. Continues to be on Veltassa. F/U 2 mos 04/05/19 - nephro F/U 07/13/19 - NEPHRO F/U 08/24/19 - NEPHRO F/U: Paroxysmal supraventricular tachycardia ([facility] ) 07/16/2012 Resolved Problems Problem Noted Date Diagnosed Date Resolved Date Synovial cyst of right popliteal space 07/28/2021 01/16/2022 Overview (10/21/2021): MRI right knee (06/30/2020) 1. Complex tearing of the medial meniscus with tibial articular surface and inner margin oblique components. 2. Minimal fraying of the lateral meniscal body inner margin. 3. Edema adjacent to the medial collateral ligament, likely related to the adjacent meniscal tear. A grade 1 sprain could be considered in the appropriate clinical setting. 4. Oywwpyts-zf-hnwgrh medial as well as fmeq-wg-rndthqpk lateral and mild patellofemoral compartment osteoarthritis. Large joint effusion with multiple small loose bodies. Moderate Santo's cyst. Poisoning by antineoplastic and immunosuppressive drugs(963.1) 01/18/2021 Poisoning by antineoplastic and immunosuppressive drugs, accidental (unintentional), initial encounter 01/18/202101/16 Multiple nodules of lung 05/12/2018 Overview (07/22/2021): 02/16/17 - CT Chest W/O: There is a 2 mm parenchymal nodule in the right base. Additional 2 mm in R lower lobe. 3mm parenchymal nodule abutting a minor fissure. No suspicious nodules or masses identified. Impression: Multiple parenchymal nodules as dscribed measuring less than 4 mm probably post imflammatory or post infectious in nature. Encounters Date Type Department Care Team Description 12/13/2024 2:00 PM EST / Visits [address] [phone] Felicia Borges LICSW PTSD (post-traumatic stress disorder) (Primary Dx); Mood disorder due to a general medical condition; Mood disorder due to medical condition; ALBERT (generalized anxiety disorder) 12/05/2024 Interim Notes [address] [phone] [place]er PerezTAM[place], [place] 11/23/2024 2:00 PM EST / Visits [address] [phone] Ld Rob PMHNP Mood disorder due to medical condition (Primary Dx); ALBERT (generalized anxiety disorder) 11/23/2024 Travel 11/22/2024 2:20 PM EST Office Visit [address] [phone] Brit Vasquez PA-C Acquired supination of foot, unspecified laterality (Primary Dx); Mild vitamin D deficiency 11/22/2024 Travel 11/15/2024 1:00 PM EST / Visits [address] [phone] Felicia Borges LICSW PTSD (post-traumatic stress disorder) (Primary Dx); Mood disorder due to a general medical condition; Mood disorder due to medical condition; ALBERT (generalized anxiety disorder) 11/15/2024 Travel 10/19/2024 2:00 PM EST / Visits [address] [phone] Felicia Borges, [facility] PTSD (post-traumatic stress disorder) (Primary Dx); Mood disorder due to a general medical condition; Mood disorder due to medical condition; ALBERT (generalized anxiety disorder) 10/19/2024 Travel from Last 3 Months Immunizations Name Administration Dates Next Due Flu, Cell Culture based, Mul ti Dose, 6m+, Flucelvax 08/28/2019 Flu, Multi Dose 0.5 ML 08/25/2017 Flu, Preservative Free 07/28/2020 Hep B, Adult/Adol (ENERGIX/RECOMBIVAX) 2,05/07/2012 INFLUENZA, SEASONAL, INJECTABLE 09/02/20,08/28/2019,08/28/2019,08/02,08/02/2017 INFLUENZA, UNSPECIFIED 09/02/2021,2018,08/02/2017,08/19 Influenza (FLUZONE), high-do se, trivalent, PF 09/14/2018,09/02/2018 Influenza Virus Vaccine (FLU MIST), Live Intranasal 06/10/2014 MENINGOCOCCAL ACWY, UNSPECIFIED 04/18/2019 MENINGOCOCCAL B (Bexsero), OMV 04/18/2019 MENINGOCOCCAL MCV4P (MENACTRA) 05/11/2019,2018,04/18/2019 MMR (MMR II/Priorix) 06/21/2012,06/21/20 12,05/07/2012,05/07 PFIZER COVID VACCINE, PURPLE CAP, 12+ ,02/15/2021,02/15/2021,01/25,01/25/2021 PNEUMOCOCCAL CONJUGATE PCV 13 12/15/2017 PNEUMOCOCCAL POLYSACCHARIDE PPV23 02/16/2018,10/2018,08/14/2012 TDAP 05/07/2012,05/07/2012 Td (adult), 5 Lf tetanus tox oid, preservative free 03/14/2015 Typhoid, Vicps 05/11/2019 Typhoid, unspecified 05/11/2019 Zoster, Live Vaccine (Zostavax) 09/16/2013 Social History Tobacco Use Types Packs/Day Years Used Date Smoking Tobacco: Never Smokeless Tobacco: Never Tobacco Cessation:Counseling Given: Not Answered Alcohol Use Standard Drinks/Week Comments No 0 (1 standard drink = 0.6 oz pur e alcohol) Social Connections Answer Date Recorded Connectedness 1 08/16/2024 Financial Resource Strain Answer Date R ecorded Financial Resource Strain 1 2023 Stress Answer Date Recorded Stress 2 08/16/2024 Physical Activity Answer Date Recorded Physical Activity 0 07/22/2021 Food Insecurity Answer Date Recorded Food 1 08/16/2024 Transportation Needs Answer Date Record ed Transportation 1 08/16/2024 Housing Stability Answer Date Recorded Housing 1 08/16/2024 Safety and Environment Answer Date Margarito rded Safety 0 08/13/2023 Utilities Answer Date Recorded Utilities 1 08/16/2024 Employment Answer Date Recorded Stress 0 07/22/2021 Comments No Sex and Gender Information Value Date Recorded Sex Assigned at Female 09/14/2017 11:30 AM PST Legal Sex Female 11:36 AM PDT Gender Identity Female 09/14/2017 11:30 AM PST Sexual Orientation Straight 09/14/2017 11 :31 AM PST Last Filed Vital Signs Vital Sign Reading Time Taken Comments Blood Pressure 120/68 11/22/2024 2:05 PM EST Pulse 91 11/22/2024 2:05 PM EST Temperature 36.6 ??C (97.8 ??F) 11/22/2024 2:05 PM ES T Respiratory Rate 16 11/22/2024 2:05 PM EST Oxygen Saturation 98% 11/22/2024 2:05 PM EST Inhaled Oxygen Concentration - - Weight 78.9 kg (174 lb) 11/22/2024 2:05 PM EST Height 156 cm (5' 1.42 ) 11/22/2024 2:05 PM EST Body Mass Index 32.43 11/22/2024 2:05 PM EST Plan of Treatment Upcoming Encounters Date Type Department Care Team (Late st Contact Info) Description 01/10/2025 2:00 PM EDT / Visits [facility] [address] [place] [phone] Felicia Borges, [place] [phone] [place] [address] 01/18/2025 2:00 PM EDT / Visits [facility] [address] [place] [phone] Ld Rob, PMHNP [address] [place] [address] Health Maintenance Due Date Last Done Comments Dental FMX/Pano 1965 Hepatitis C Screening [address] Colonography 2010 FIT/gFOBT 2010 Fecal DNA 2010 Flexible Sigmoidoscopy 2010 Imm-Hepatitis B (2 of 3 - 19+ 3-dose series) 06/04/2012 05/07/2012, 05/07/2012 Imm-Zoster, Recombinant (1 of 2) 11/11/2013 09/16/2013 Diabetes Screening 05/11/2021 05/11/2018 HPV Screening 12/03/2021 12/03/2016, 12/03/2016 Breast Cancer Screening (Mammogram) 08/11/2022 08/11/2021, 08/11/2021, 11/08/2018, Additional history exists Imm-Pneumococcal (4 of 4 - PCV20 or PCV21) 02/16/2023 02/16/2018, 01/11/2018, 12/15/2017, Additional history exists Lipid Screening 01/16/2024 01/15/2023, 12/0 03/2022, 01/10/2022 Dental BW 03/05/2024 03/03/2023 Dental Examination 03/05/2024 03/03/2023 Dental Perio Charting 03/05/2024 03/03/2023 Dental Prophy 03/05/2024 03/03/2023 Depression Monitoring 02/20/2025 11/22/2024 , 08/16/2024, 01/05/2024, Additional history exists [id number] ( season) 2025 05/16/2021, 02/15/2021, 02/15/2021, Additional history exists Postponed from 07/03/2024 (Patient postponement) Imm-DTaP/Tdap/Td (4 - Td or Tdap) 03/14/2025 03/14/2015, 05/07/2012, 05/07/2012 Imm-Influenza (#1) 2025 09/02/2021, 1 11/02/2020, 07/28/2020, Additional history exists Postponed from 07/03/2024 (Patient postponement) Colonoscopy 06/27/2025 06/27/2015 Colorectal Cancer Screening 06/27/2025 Annual Preventive Care Visit 08/16/2025 08/16/2024, 08/13/2023, 07/22/2021, Additional history exists Hypertension Screening (#1) 11/22/2025 Tobacco Screening 11/22/2025 11/22/2024, 08/07/2022 Pap Smear 12/14/2026 12/14/2023, 02/0 11/2016, 12/03/2016, Additional history exists Cervical Cancer Screening 12/14/2028 Pap + HPV 12/14/2028 12/14/2023, 12/03, 12/03/2016, Additional history exists HIV Screening Completed 01/10/2022 Alcohol and Drug Screen Completed 11/22/19, 08/16/2024, 01/05/2024, Additional history exists Cervical Ablation/Cold-Knife Conization Discontinued Cervical Cryotherapy Discontinued Colposcopy Discontinued Endometrial Biopsy Discontinued Excision/Leep Discontinued HPV Genotyping Discontinued Vaginal Pap Discontinued Vulvoscopy Discontinued Procedures Procedure Name Priority Date/Time Associated Diagnosis Comments DXA BONE DENSITY STUDY 1/> SITES AXIAL SKEL Routine 12/27/2024 3:00 AM EST Post-menopausal OTHER ORDERS SCANNED DOCUMENT 10/24/2024 3:00 AM EST REFERRAL SCANNED DOCUMENT 10/20/2024 3:00 AM EST LAB SCANNED DOCUMENT 10/07/2024 3:00 AM EST PAP W/ HPV 12/14/2023 3:00 AM EST COMP PERIODONTAL EVALUATION - NEW/EST PATIENT Routine 03/03/2023 3:40 PM EDT Encounter for dental examination and cleaning with abnormal findings BITEWINGS - FOUR RADIOGRAPHIC IMAGES Routine 03/03/2023 3:40 PM EDT Caries Encounter for dental examination and cleaning with abnormal findings PROPHYLAXIS - ADULT Routine 03/03/2023 3 :40 PM EDT Caries Encounter for dental examination and cleaning with abnormal findings PERIODIC ORAL EVALUATION ESTABLISHED PATIENT Routine 03/03/2023 3:40 PM EDT Caries Encounter for dental examination and cleaning with abnormal findings MA DIGITAL SCREENING MAMMO BILAT W CAD Routine 08/11/2021 4:15 PM EDT Encounter for screening mammogram for malignant neoplasm of breast COMPREHENSIVE METABOLIC PANEL Routine 05/11/2018 9:52 AM EDT Dizziness PAP SMEAR W/HPV, ABSTRACTED Routine 12/03/2016 3:34 PM EST COLONOSCOPY Routine 06/27/2015 2:34 PM EDT from Last 3 Months or Most Recently Relevant to Health Maintenance Results * DXA BONE DENSITY STUDY 1/> SITES AXIAL SKEL (12/27/2024 3:00 AM EST) 12/27/2024 3:00 AM EST [employer] Lukin PA-C IMG DXA Final Result * OTHER ORDERS SCANNED DOCUMENT (10/24/2024 3:00 AM EST) 10/24/2024 3:00 AM EST [employer] Lukin PA-C SCAN OTHER ORDERS Final Resu lt * REFERRAL SCANNED DOCUMENT (10/20/2024 3:00 AM EST) 10/20/2024 3:00 AM EST [employer] Lukin PA-C SCAN REFERRAL Final Result * LAB SCANNED DOCUMENT (10/07/2024 3:00 AM EST) 10/07/2024 3:00 AM EST Brit Lukin PA-C SCAN LAB Final Result * PAP W/ HPV (12/14/2023 3:00 AM EST) 12/14/2023 3:00 AM EST Randal Fitzpatrick PA-C LAB - NO BLOOD DRAW Final Re sult * MA DIGITAL SCREENING MAMMO BILAT W CAD (08/11/2021 4:15 PM EDT) Therese Hamilton ARTS AND CRAFTS TEACHER-C IMG MAMMO Edited Resul t - Final * (ABNORMAL) COMPRE METAB PANEL (05/11/2018 9:52 AM EDT) GLUCOSE 93 70 - 100 mg/dL [facility] Comment:Reference range appl icable to fasting specimens only BUN 14 5 - 25 mg/dL [facility] CREAT 1.24(H) 0.5 - 1.1 mg/dL [facility] GLOMERULAR FILTRATION RATE 45 [facility] Comment: If patient is -Tong[place], multiply result by 1.21 Chronic Kidney Disease: < 60 ml/min/1.73 square meters Kidney Failure: < 15 ml/min/1.73 square meters SODIUM 138 133 - 145 mmol/L [facility] POTASSIUM 5.2 3.5 - 5.5 mmol/L [facility] CHLORIDE 105 96 - 110 mmol/L [facility] CO2 29 21 - 32 mmol/L [facility] ANION GAP 4 3 - 11 [facility] CALCIUM 9.6 8.5 - 10.5 mg/dL [facility] TOTAL PROTEIN 7.2 6.0 - 8.0 G/dL [facility] ALBUMIN 4.0 3.2 - 5.0 G/dL [facility] BILI, TOTAL 0.7 0.0 - 1.4 mg/dL [facility] SGOT 18 10 - 42 U/L [facility] SGPT 27 10 - 60 U/L [facility] ALK PHOS 85 42 - 121 U/L [facility] Blood specimen (specimen) Blood / Unknown 05/11/2018 9:52 AM EDT 05/11/2018 9:58 AM EDT Narrative [facility] - 05/11/2018 12:26 PM EDT [employer] [address] [place] [address] PT ID [id number] ORD# [id number] Dayana Hunter ARTS AND CRAFTS TEACHER LAB - BLOOD DRAW Final Resu lt [facility] [address] [place] [address], * PAP SMEAR W/HPV, HISTORICAL (12/03/2016 3:34 PM EST) PAP SMEAR INTERPRETATION NORMAL NORMAL [facility] HPV (HUMAN PAPILLOMA) NEGATIVE NEGATIVE [facility] Specimen from uterine cervix (specimen) Impressions [facility] - 12/03/2016 3:34 PM EST ThinPrep Pap Low-grade squamous intraepithelial lesion (LSIL) HPV Negative Provider [facility] LAB - NO BLOOD DRAW Final Result Performing Organization Address [facility] Co de Phone Number [facility] [address] [place] [address], * COLONOSCOPY (06/27/2015 2:34 PM EDT) Impressions Aruna Marsh MA - 06/27/2015 2:34 PM EDT Colonoscopy impressions: normal colonoscopy with mild diverticulosis coli Repeat 10 years Provider [facility] PROCEDURES Final Result from Last 3 Months or Most Recently Relevant to Health Maintenance Insurance [place] MEDICAID DENT[place] Member Subscriber Plan / Payer (Ef fective 2017-Present) Name:Miryam Bolton Relation to Subscriber:Self Name:Miryam Bolton Payer ID:[id number] Group ID:Not on file Type:Medicaid Address: [place] [id number] [employer] [place] [address] [employer] Care Teams Crystal Mounter Relationship Specialty Start Date End Date Brit Vasquez PA-C [address] [place] [phone] PCP - General Internal Medicine 05/20/24
--- OUTSIDE RECORDS SUMMARY | 2025-01-03 14:56 | XMS_ITS | Continuity of Care Document ---
Author Organization [facility] Address [address] [place] [address]- Care Team Providers Care Physicians And Surgeons Name Role Phone Sandrine Kerr Primary Care Physician [phone] Encounter [facility] Date[facility]s): 11/22/24 - 12/22/[facility] [address] [place] [address] Attending Physician: Marylou Haynes Admitting Physician: AdmtrMarylou Referring Physician: AdmtrMarylou Encounter Type: Triage Allergies, Adverse Reactions, Alerts [...] Note: PCP 3Admin Note: Dialysis 4Admin Note: [facility] 5Admin Note: By Dialysis 6Admin Note: [facility] 7Admin Note: [facility] Medications Afluria Preservative-Free [id number] intramuscular suspension 0.5 mL, Intramuscular, Once, # 0.5 mL, 0 Refills, Soft Stop, 08/19/16 9:00:00 AM EDT Start Date: 08/19/16 Stop Date: 08/20/16 Status: Ordered Quantity: 0.5 Unit: mL Repeat number: 1 aspirin 81 mg oral delayed release tablet 81 mg, By Mouth, Daily, # 30 tablet, Refills 0, Tot. Refills 0, Maintenance, 09/02/24 11:14:00 AM EDT, Route to Pharmacy Electronically, [facility]/pharmacy #[id number], Partial fill upon patient request [...] 2 Refills, Maintenance, 09/22/24 1:59:00 PM EST, [facility]/pharmacy #[id number], Partial fill upon patient request [...] 11 Refills, Maintenance, 03/09/23 2:45:00 PM EDT, [facility]/pharmacy #[id number], Partial fill upon patient requestif [...] 9:27:36 AM EDT, Route to Pharmacy Electronically, [facility]/pharmacy #[id number] Start Date: 03/27/16 Stop Date: 09/23/16 Status: Ordered Quantity: 30.0 Unit: tablet Repeat number: 6 gabapentin 100 mg oral capsule 200 mg, 2, capsule, By Mouth, 2 times a day, # 120 capsule, Refills 5, Tot. Refills 5, Maintenance,11/21/16 2:07:42 PM EST, Route to Pharmacy Electronically, [facility]/pharmacy #[id number] Start Date: 11/21/16 Stop Date: [...] Refills, Maintenance, 12/29/16 10:47:18 AM EST, Tablet, [facility]/pharmacy #[id number] Start Date: 12/29/16 Status: Ordered [...] 3:52:00 PM EDT, Route to Pharmacy Electronically, [facility]/pharmacy #[id number], Partial fill upon patient requestif [...] Maintenance, 02/09/17 4:29:44 PM EDT, EC Tablet, [facility], please deliver Start Date: 02/09/17 Stop Date: 02/04/18 Status: Ordered Quantity: 180.0 Unit: tablet Repeat number: 12 nitroglycerin 0.4 mg sublingual tablet 1 tablet = 0.4 mg, Sublingual, Every 5 minutes, PRN for chest pain, # 100 tablet, 3 Refills, Maintenance, 02/10/24 3:50:00 PM EDT, Tablet, [facility]/pharmacy #[id number], 161, cm, 02/10/24 15:34:00 EDT, [...] Refills, Maintenance, 10/03/24 9:52:00 AMEST, DIS Tablet, [facility]pharmacy [id number], Partial fill upon patient request if [...] 03/22/24 Status: Ordered Repeat number: 1 valtassa valcandisa, See Instructions, Refills 0, Maintenance, Every other day, 08/09/18 1:34:52 PM EDT, Compound Start Date: 08/09/18 Status: Ordered Repeat number: 1 vibegron 75 mg oral tablet 1 tablet = 75 mg, By Mouth, Daily, # 30 tablet, 5 Refills, Maintenance, 07/29/24 3:58:00 PM EDT, [id number], Partial fill upon patient request if [...] Care Team Personnel Name: Ida Sharma Position: [facility] AMB Nurse Member Role: Lifetime Consulting Physician Name: Ray Irene MD Position: [facility] Outreach Member Role: Lifetime Consulting Physician Address: [address] [facility] [place], [place] [address]- [place] Telecom: Name: Jadon Rodriguez MD Position: [facility] Renal MD Member Role: Lifetime Consulting Physician Address: [address] [place] [address] [address] [facility] [place] [address]- [place] Telecom: Name: Theodora Horner RN Position: [facility] RN Member Role: Primary Care Nurse Name: Sandrine Kerr Position: [facility] Outreach Member Role: PCP Address: [address] [place] [address]- [place] Telecom: Care Team Related Persons Name: LUIS DANIEL GUNTER Name: ISHAN REYES Insurance Providers Guarantor name: MARTA LEGERValeria [employer] Plan Information #: 1 Payer: [employer] Member Number: NA Policy Number: NA Group Number: NA
--- OUTSIDE RECORDS SUMMARY | 2025-01-03 14:56 | XMS_ITS | Continuity of Care Document ---
Author Organization [facility] Address [address] [place] [address], [address] d Floor, [address] [place] [address]- Care Team Providers Care Vocational Rehabilitation Counselor Name Role Phone Sandrine Kerr Primary Care Physician Encounter [facility] Date(s): 09/02/24 - 12/14/24 [facility] [address] [place] [address] 3rd Floor, [address] [place] [address] Attending Physician: Yoon Blevins NP Admitting Physician: Yoon Blevins NP Referring Physician: Danielle Poole NP Encounter Type: Pre-OutPatient One Time Allergies, Adverse Reactions, Alerts Substance Criticality Severity [...] Note: PCP 3Admin Note: Dialysis 4Admin Note: 5Admin Note: By Dialysis 6Admin Note: [facility] 7Admin Note: Medications Afluria Preservative-Free [id number] intramuscular suspension 0.5 mL, Intramuscular, Once, # 0.5 mL, 0 Refills, Soft Stop, 08/19/16 9:00:00 AM EDT Start Date: 08/19/16 Stop Date: 08/20/16 Status: Ordered Quantity: 0.5 Unit: mL Repeat number: 1 aspirin 81 mg oral delayed release tablet 81 mg, By Mouth, Daily, # 30 tablet, Refills 0, Tot. Refills 0, Maintenance, 09/02/24 11:14:00 AM EDT, Route to Pharmacy Electronically, [facility]/pharmacy #[id number], Partial fill upon patient request [...] 2 Refills, Maintenance, 09/22/24 1:59:00 PM EST, [facility]/pharmacy #[id number], Partial fill upon patient request [...] 11 Refills, Maintenance, 03/09/23 2:45:00 PM EDT, [facility]/pharmacy #[id number], Partial fill upon patient requestif [...] 9:27:36 AM EDT, Route to Pharmacy Electronically, [facility]/pharmacy #[id number] Start Date: 03/27/16 Stop Date: 09/23/16 Status: Ordered Quantity: 30.0 Unit: tablet Repeat number: 6 gabapentin 100 mg oral capsule 200 mg, 2, capsule, By Mouth, 2 times a day, # 120 capsule, Refills 5, Tot. Refills 5, Maintenance,11/21/16 2:07:42 PM EST, Route to Pharmacy Electronically, [facility]/pharmacy #[id number] Start Date: 11/21/16 Stop Date: [...] Refills, Maintenance, 12/29/16 10:47:18 AM EST, Tablet, [facility]/pharmacy #[id number] Start Date: 12/29/16 Status: Ordered [...] 3:52:00 PM EDT, Route to Pharmacy Electronically, [facility]/pharmacy #[id number], Partial fill upon patient requestif [...] Maintenance, 02/09/17 4:29:44 PM EDT, EC Tablet, [facility], please deliver Start Date: 02/09/17 Stop Date: 02/04/18 Status: Ordered Quantity: 180.0 Unit: tablet Repeat number: 12 nitroglycerin 0.4 mg sublingual tablet 1 tablet = 0.4 mg, Sublingual, Every 5 minutes, PRN for chest pain, # 100 tablet, 3 Refills, Maintenance, 02/10/24 3:50:00 PM EDT, Tablet, [facility]/pharmacy #[id number], 161, cm, 02/10/24 15:34:00 EDT, [...] Refills, Maintenance, 10/03/24 9:52:00 AMEST, DIS Tablet, [facility]/pharmacy #[id number], Partial fill upon patient request [...] Care Team Personnel Name: Ida Sharma Position: [facility] AMB Nurse Member Role: Lifetime Consulting Physician Name: Ray Irene MD Position: [facility] Outreach Member Role: Lifetime Consulting Physician Address: [address] [facility] [facility] [place], [place] [address]- [place] Telecom: Name: Jadon Rodriguez MD Position: [facility] Renal MD Member Role: Lifetime Consulting Physician Address: [address] [facility] [place] [address]- [place] Tele[employer]: Name: Theodora Horner RN Position: [facility] RN Member Role: Primary Care Nurse Name: Sandrine Kerr Position: [facility] Outreach Member Role: PCP Address: [address] [place] [address]- [place] Telecom: Care Team Related Persons Name: LUIS DANIEL GUNTER Name: ISHAN REYES Insurance Providers Guarantor name: MARTA ALVARADO Health Plan Information #: 1 Payer: [employer] Member Number: [id number] Policy Number: NA Group Number: NA Health Plan Information #: 2 Payer: [employer] Member Number: [id number] Policy Number: NA Group Number: NA
--- OUTSIDE RECORDS SUMMARY | 2025-01-03 14:57 | XMS_ITS | Encounter Summary ---
Author Organization [facility] Address [address] [address] Care Team Providers Care Desk Maker Name Role Phone Pedro Brit DICKINSON Primary Care Provider + [phone] Encounter Details Date Type Department Care Team (Late Contact Info) Description 10/04/2015 Interim Notes [address] [phone] Paz Hernandez NP [address] [place] [address] Social History Tobacco Use Types Packs/Day Years Used Date Smoking Tobacco: Never Alcohol Use Standard Drinks/Week Comments No 0 (1 standard drink = 0.6 oz pur e alcohol) Comments No Sex and Gender Information Value Date Recorded Sex Assigned at Female 09/14/2017 11:30 AM PST Legal Sex Female 11:36 AM PDT Gender Identity Female 09/14/2017 11:30 AM PST Sexual Orientation Straight 09/14/2017 11 :31 AM PST documented as of this encounter Plan of Treatment Upcoming Encounters Date Type Department Care Team (Late Contact Info) Description 01/10/2025 2:00 PM EDT BH/MH Visits [facility] [address] [place] [phone] Felicia Borges LICSW [facility] [place] [address] 01/18/2025 2:00 PM EDT BH/MH Visits [place] [address] [place] [phone] Ld Rob PMHNP [address] [place] [address] documented as of this encounter Visit Diagnoses Not on filedocumented in this encounter Care Teams Desk Maker Relationship Specialty Start Date End Date Brit Vasquez PA-C [address] [place] [address] PCP - General Internal Medicine 05/20/24 documented as of this encounter
--- OUTSIDE RECORDS SUMMARY | 2025-01-03 14:57 | XMS_ITS | Clinical Summary ---
Author Organization [facility] Address [address] [place] [address] Care Team Providers Care Automation Application Engineer Name Role Phone Therese Hamilton Primary Care Provider Unavailabl e Social History Tobacco Use Types Packs/Day Years Used Date Smoking Tobacco: Never Assessed Sex and Gender Information Value Date Recorded Sex Assigned at Female 02/02/2024 4:10 PM EDT Gender Identity Female 02/02/2024 4:10 PM EDT Sexual Orientation Heterosexual (straight) 02/01 4:10 PM EDT Plan of Treatment Health Maintenance Due Date Last Done Comments Hepatitis C Virus Screening 1965 HIV Screening 1978 DTaP/Tdap/Td Vaccines (1 - Tdap) 1984 Hepatitis B Vaccines (1 of 3 - 19+ 3-dose series) 1984 Pap Smear (Ages 21-65) 1986 Mammogram 2005 Colonoscopy 2010 Pneumococcal Vaccines 50+ (1 of 1 - PCV) 2015 Zoster (Shingles) Vaccine (1 of 2) 2015 Influenza Vaccine 06/02/2024 09/02/2021, , 07/28/2020, Additional history exists COVID-19 Vaccine ( season) 2024 05/16/2021, 02/15/2021, 01/25/2021 Pneumococcal Vaccine: Pediatric (0-5 Years) and At-Risk Patients (6 to 49 Years) Aged Out No longer eligible based on patient's age to complete this topic Care Teams Automation Application Engineer Relationship Specialty Start Date End Date Therese Hamilton PCP - General Internal Medicine 10/09/22
--- OUTSIDE RECORDS SUMMARY | 2025-01-03 14:57 | XMS_ITS | Encounter Summary ---
Author Organization [facility] Address [address] [address] Care Team Providers Care Transaction Processor Name Role Phone Pedro Brit DICKINSON Primary Care Provider + [phone] Encounter Details Date Type Department Care Team ([facility] st Contact Info) Description 12/05/2024 Interim Notes Pending Sale To [facility] [address] [place] [phone] [place], [place] [address] [place] [address] Social History Tobacco Use Types Packs/Day Years Used Date Smoking Tobacco: Never Smokeless Tobacco: Never Alcohol Use Standard Drinks/Week Comments [...] Orientation Straight 09/14/2017 11 :31 AM PST COVID-19 Exposure Response Date Recorded In the last 10 days, have yo u been in contact with someone who was confirmed or suspected to have Coronavirus/COVID-19? Unable to assess 11/23/2024 2:54 PM EST documented as of this encounter Progress Notes * Kristofer Perez [place] - 12/05/2024 10:16 AM EST PT-1 Number:[id number] Member Home Modify Miryam Bolton [address] [address] Treating Location Modify [facility] [address] [facility] [address] Treatment Details Modify Treating facility within member's locality Yes Requested service [id number] Duration of services 3 Month(s) Frequency of services 1 visit(s) per Month Transportation Details Modify Member will require a wheelchair van No Member will be accompanied by an escort No Member will require a service animal No Member requires [id number] transportation No Member carries self-administered oxygen No Member is bariatric No Can members family or friends give a ride ? No documented in this encounter Plan of Treatment Upcoming Encounters Date Type Department Care Team (Late st Contact Info) Description 01/10/2025 2:00 PM EDT / Visits [facility] [address] [place] [address] Felicia Borges LICSW [address] [place] [address] 01/18/2025 2:00 PM EDT / Visits [address] [phone] Ld Rob PMHNP [address] [place] [address] documented as of this encounter Visit Diagnoses Not on filedocumented in this encounter Additional Health Concerns Assessment Noted Time PHQ-9 Depression Total Score: 0 11/22/19 25 2:02 PM PST documented as of this encounter Care Teams Transaction Processor Relationship Specialty Start Date End Date Brit Vasquez PA-C [address] [place] [phone] PCP - General Internal Medicine 05/20/24 documented as of this encounter
--- OUTSIDE RECORDS SUMMARY | 2025-01-03 14:57 | XMS_ITS | Encounter Summary ---
Author Organization [facility] Address [address] [facility] [address] [address] [place] [address] Phone Care Team Providers Care Ship Wirer Name Role Phone Therese Hamilton NUT PROCESS HELPER Primary Care Provider [phone] Reason for Visit * Reason Comments Med Refill Encounter Details Date Type Department Care Team (Late st Contact Info) Description 01/07/2024 Refill [facility] [address] [facility] [address] [place] [phone] Oumar Williamson MD [address] [place] [address], [address] [phone] Social History Tobacco Use Types Packs/Day Years Used Date Smoking Tobacco: Never Smokeless Tobacco: Never Alcohol Use Standard Drinks/Week Comments No 0 (1 standard drink = 0.6 oz pur e alcohol) Comments No Sex and Gender Information Value Date Recorded Sex Assigned at Not on file Legal Sex Female 5:22 PM EST Gender Identity Not on file Sexual Orientation Not on file documented as of this encounter Plan of Treatment Not on file documented as of this encounter Visit Diagnoses Not on filedocumented in this encounter Care Teams Ship Wirer Relationship Specialty Start Date End Date Therese Hamilton NP PCP - General Nurse Practitioner 01/08/22 documented as of this encounter
--- OUTSIDE RECORDS SUMMARY | 2025-01-03 14:57 | XMS_ITS | Encounter Summary ---
Author Organization [facility] Address [address] [address] Care Team Providers Care Surfacing Technician Name Role Phone Pedro Brit DICKINSON Primary Care Provider + [phone] Encounter Details Date Type Department Care Team (Late Contact Info) Description 12/25/2016 Interim Notes [address] [phone] Juan Pablo Sylvester [address] [place] [address] Social History Tobacco Use Types Packs/Day Years [...] Upcoming Encounters Date Type Department Care Team ([facility] Contact Info) Description 01/10/2025 2:00 PM EDT / Visits [facility] [address] [place] [phone] Felicia Borges, PMP CERTIFIED PROJECT MANAGER [address] [place] [address] 01/18/2025 2:00 PM EDT BH/ Visits [address] [phone] Ld Rob PMHNP [address] [place] [address] documented as of this encounter Visit Diagnoses Not on filedocumented in this encounter Care Teams Surfacing Technician Relationship Specialty Start Date End Date Brit Vasquez PA-C [address] [place] [phone] PCP - General Internal Medicine 05/20/24 documented as of this encounter
--- OUTSIDE RECORDS SUMMARY | 2025-01-03 14:57 | XMS_ITS | Encounter Summary ---
Author Organization [facility] [place] [address] Care Team Providers Care Administrator Social Welfare Name Role Phone Brit Vasquez Primary Care Provider [phone] Reason for Visit * Consultation (Routine) - Authorized Specialty Diagnoses / Procedures Referred By Contbette t Referred To Contact Physical Therapy Diagnoses Scoliosis Brit Vasquez PA [address] [place] [address] Phone: tel: fax: [facility] [address] [address] Phone: tel: fax: Referral ID Status Reason Start Date Expiration Date Visits Requested Visits Authorized [id number] Authorized Specialty Services Required 09/09/2024 09/09/2025 20 20 Encounter Details Date Type Department Care Team (Late st Contact Info) Description 12/05/2024 2:30 PM EST Treatment [address] [address] Napoleon Moreno PTA Chronic back pain greater than 3 months duration (Primary Dx); Other idiopathic scoliosis, thoracic region Social History Tobacco Use Types Packs/Day Years Used Date Smoking Tobacco: Never Smokeless Tobacco: Never Comments Unknown Sex and Gender Information Value Date Recorded Sex Assigned at Not on file Legal Sex Female 9:35 AM EST Gender Identity Not on file Sexual Orientation Not on file documented as of this encounter Progress Notes * Napoleon Moreno PTA - 12/05/2024 2:30 PM EST [facility] [place] [facility] PHYSICAL THERAPY DAILY TREATMENT NOTE - OP Date: 12/05/2024 Visit Number: 3 Patient Name: Miryam Bolton : 1965 Age: 59 y.o. Gender: female Diagnosis: ICD-10-CM ICD-9-CM 1. Chronic back pain greater than 3 months duration M54.9 724.5 G89.29 338.29 2. Other idiopathic scoliosis, thoracic region M41.24 737.30 Date of Onset/Surgery: 11/08/2019 Referring Provider: Brit Vasquez PA Insurance: Pay[place] / Plan[place] / Product Type: *No Product type* / Patient Identified by: Napoleon Moreno PTA Language: Speaks and understands Citizen Of [place] as preferred language with no japanese interpreter required Medications: No current outpatient medications on file prior to visit. No current facility-administered medications on file prior to visit. Allergies: has no allergies on file. Precautions: None Fall risk: No SUBJECTIVE Subjective Report: Patient reports having increased back pain after last visit. She thinks I may have been exercise with ball on wall. Chart Reviewed: Yes Pain: reports /10 over weekend. Today little lower /10 TREATMENT INTERVENTION: UBE 5 min backwards L1 Seated Hamstring stretching 3 x 20 sec each with 4 inch step Seated ankle pumps with knee extended (LAQ) 10 reps Scap retraction rows Red Theratube 10 x 2 Supine Pelvic Tilt 10 sec hold x 10 reps HL Hip ADD with small ball 10 sec hold x 10 reps Hip Abd against Stonewall Band with PT in HL Piriformis Stretching 3 x 20 reps ASSESSMENT/Response to Treatment Good response with exercises and stretching. Withheld on wall ball exercise as patient considering reason for increased pain. Visit focusing on Lumbar stand and strengthening. HEP: HL Hip Abd with theraba with Pelvic tilt HL Hip Add with small ball or cushion between knees with PT Piriformis Stretching Patient Education: Education provided: yes added and educated on above HEP Education Provided To: Patient utilizing Explanation and Demonstration mode(s) of education Response to Education: Verbal Understanding PLAN POC Development/Review: No Change in the Plan of Care; Participants: Patient Interventions Time Entry: Modalities: Therapeutic procedures: Therapeutic Exercise Time Entry: 30 Total Treatment Time: 30 mins Documentation completed by Napoleon Moreno PTA documented in this encounter Plan of Treatment Not on file documented as of this encounter Visit Diagnoses Diagnosis Chronic back pain greater than 3 months duration- Primary Other idiopathic scoliosis, thoracic region documented in this encounter Care Teams Administrator Social Welfare Relationship Specialty Start Date End Date Brit Vasquez PA [address] [place] [address] PCP - General Physician Photonics Technician 09/30/24 documented as of this encounter
--- OUTSIDE RECORDS SUMMARY | 2025-01-03 14:57 | XMS_ITS | Clinical Summary ---
Author Organization [facility] Address [address] [facility] [address] [place] [address] Phone Care Team Providers Care Bridge Maintenance Worker Name Role Phone Therese Hamilton NP Primary Care Provider [phone] Allergies Active Allergy Reactions Criticality Noted Date Comments Povidone Iodine Other (see comments) 12/10/2021 Povidone-Iodine 12/10/2021 Other reaction(s): C/O: itching, C/O: itching Other reaction(s): Other (see comments) Medications acetaminophen (TYLENOL) 325 MG tablet Take 3 tablets by mouth 4 (four) times a day Active cyclobenzaprine (FLEXERIL) 10 MG tablet Take 1 tablet by mouth at bed time Active loperamide (IMODIUM) 2 MG capsule Comments: Patient Notes: Take 1 capsule qd po for diahrrea Active nitroglycerin (NITROSTAT) 0.[address] 1 tablet under the tongue Active Mirabegron ER (Myrbetriq) 50 MG tablet sustained-relea se 24 hour Take 1 tablet by mouth 1 (one) time each day Active magnesium oxide (MAG-OX) 400 MG tablet TAKE 1 TABLET BY MOUTH TWICE A DAY 60 tablet 11 1 Active traMADol (ULTRAM) 50 MG tablet TAKE 1 TABLET TWICE A DAY NEEDED FOR PAIN DO NOT DRIVE WHILE TAKING THIS MEDICATION 1 Active fluticasone (Flonase Sensimist) 27.5 MCG/SPRAY nasal spray Administer 1 spray into affected nostril(s) 1 Active hydrOXYzine (ATARAX) 10 MG tablet TAKE 1 TABLET BY MOUTH EVERY DAY DIRECTED 30 tablet 11 2 Active famotidine (PEPCID) 20 MG tablet TAKE 1 TABLET BY MOUTH TWICE A DAY 60 tablet 11 2 Active lidocaine (LIDODERM) 5 % patch APPLY 1 PATCH TOPICALLY EACH DAY. REMOVE & DISCARD PATCH WITHIN 12 HOURS OR DIRECTED BY . 30 patch 3 2 Active LORazepam (ATIVAN) 0.5 MG tabletIndicatio ns:Other snf current drug therapy Take 1 tablet (0.5 mg total) by mouth in the morning and 1 tablet (0.5 mg total) in the evening. 60 tablet 5 2 Active sertraline (ZOLOFT) 50 MG tablet TAKE 0.5 TABLETS BY MOUTH ONCE DAILY FOR 7 DAYS, THEN 1 TABLET ONCE DAILY FOR 23 DAYS. 3 Active traZODone (DESYREL) 50 MG tablet TAKE 0.5 OR 1 TABLET BY MOUTH AT BEDTIME 3 Active metoprolol succinate XL (TOPROL XL) 25 MG 24 hr tablet Take 25 mg by mouth 1 (one) time each day 3 Active levothyroxine (SYNTHROID, LEVOTHROID) 50 MCG tablet TAKE 1 TABLET BY MOUTH EVERY DAY 90 tablet 3 3 Active Patiromer Sorbitex Calcium (Veltassa) 16.8 g pack Take 1 packet by mouth 1 (one) time each day 30 each 11 3 Active meclizine (ANTIVERT) 25 MG tablet TAKE ONE TABLET BY MOUTH THREE TIMES DAILY IF NEEDED FOR DIZZINESS 90 tablet 2 3 Active gabapentin (NEURONTIN) 100 MG capsuleIndicati ons:Stage 3a chronic kidney disease (HCC),Kidney replaced by transplant Take 3 capsules (300 mg total) by mouth every morning and evening 180 capsule 11 4 Active Gemtesa 75 MG tablet Take 1 tablet by mouth 1 (one) time each day 3 Active Calcifediol ER 30 MCG capsule controlled-rele ase Take 30 mcg by mouth 1 (one) time Pt takes it every other day . Active Tacrolimus ER (Envarsus XR) 1 MG tablet sustained-relea se 24 hourIndications :Kidney replaced by transplant Take 2 mg by mouth 1 (one) time each day 60 tablet 11 4 01/12/20 25 Active mycophenolate (MYFORTIC) 180 MG EC tabletIndicatio ns:Kidney replaced by transplant Take 2 tablets (360 mg total) by mouth in the morning and 2 tablets (360 mg total) in the evening. 120 tablet 11 4 01/12/20 25 Active rosuvastatin (CRESTOR) 5 MG tablet TAKE 1 TABLET BY MOUTH 1 TIME EACH DAY. 90 tablet 5 4 Active Active Problems Problem Noted Date Diagnosed Date Obese class I 01/09/2023 Low grade squamous intraepit helial lesion on cervical Papanicolaou smear 08/07/2022 Overview (04/28/2023): 2017 Elevated blood-pressure read ing without diagnosis of hypertension 08/07/2022 Generalized anxiety disorder 08/07/2022 Urinary incontinence 12/10/2021 Screening status 12/10/2021 Synovial cyst of popliteal space 07/28/2021 Overview (08/30/2021): MRI right knee (06/30/2020) 1. Complex tearing of the medial meniscus with tibial articular surface and inner margin oblique components. 2. Minimal fraying of the lateral meniscal body inner margin. 3. Edema adjacent to the medial collateral ligament, likely related to the adjacent meniscal tear. A grade 1 sprain could be considered in the appropriate clinical setting. 4. Ganffmpb-uu-ekhcjp medial as well as mvcl-te-vqashzym lateral and mild patellofemoral compartment osteoarthritis. Large joint effusion with multiple small loose bodies. Moderate Santo's cyst. 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 Loera Rheum at [facility]: Pt has developed L sided upper trap muscle due to DJD. Plan: flexeril x 20 days. F/U PRN Degenerative joint disease involving multiple tee ints 06/09/2018 Overview (05/14/2021): 06/08/18 - Seen by Rheum for knee [...] injections of C6- C7. F/U PRN. Multiple nodules of lung 05/12/2018 Overview (05/14/2021): 02/16/17 - CT Chest W/O: There is a 2 mm parenchymal nodule in the right base. Additional 2 mm in R lower lobe. 3mm parenchymal nodule abutting a minor fissure. No suspicious nodules or masses identified. Impression: Multiple parenchymal nodules as dscribed measuring less than 4 mm probably post imflammatory or post infectious in nature. Pain in right knee 09/14/2017 Overview (05/14/2021): X-rays right knee 10/01/17 at [facility] = degenerative changes and trace joint effusion. 06/11/18 - [facility] F/U for R knee pain: Arthrocentesis of R & L medial knee. Steroid injection b/l knees. C/w Blue Emu cream PRN. F/U PRN. Pain of knee region 09/14/2017 07/28/2023 Overview (07/28/2023): Synovial cyst of right popliteal space 07/28/2021 [...] considered in the appropriate clinical setting. 4. Rgwoqqqe-ud-eluhnl medial as well as tfgg-yj-ohxdafkm lateral and mild patellofemoral compartment osteoarthritis. Large joint effusion with multiple small loose bodies. Moderate Santo's cyst. Chronic low back pain 07/14/2017 Overview (05/14/2021): 10/01/17 - [facility]: c/o burning discomfort in nec, low [...] marginal spondylosis and degenerative endplate changes T11-T12 Hyperparathyroidism 07/14/2017 Carpal tunnel syndrome of right wrist 07/08/2017 Overview (05/14/2021): Seen [facility] Garcia 06/25/17 Eczema 01/27/2017 07/28/2023 History of abnormal cervical Papanicolaou smear 01/27/2017 07/28/2023 Overview (07/28/2023): Per old records; specific abnormality not noted Hyperlipidemia 01/27/2017 07/28/2023 Overactive bladder 01/27/2017 07/28/2023 Acquired hypothyroidism 09/05/2016 Urge and stress incontinence 09/05/2016 Overview (05/14/2021): 11/14/17 - UROLOGY: Pt has been tried on oxybutynin, darifenancin, trospium, and myrbetric. Myrbetric was not helping. Oxybutynin was more effective on LUTS but she was advised to d/c as snf use could cause mental status change. Pt interested in other medication option. Urology has no more to offer. Suggested Dr. Borjas for his opinion on surgery. Neuropathy 06/24/2016 Overview (05/14/2021): Upper and lower ext needle likle sensation, chronic, since on Hemodialysis. Cont after transplant EMG upper extremities done 05/21/17 at [facility] = mild right median neuropathy End stage renal disease 12/31/2014 Paroxysmal supraventricular tachycardia 07/16/20 12 Immunizations Name Administration Dates Next Due Hepatitis B 05/07/2012,05/07/2012 Influenza LAIV (Nasal) 06/10/2014 Influenza Split High Dose Pr eservative Free IM 09/14/2018,09/02/2018,09/02/2018 Influenza TIV (IM) 08/28/2019,08/02/2017 Influenza, MDCK, Quadrivalen t, with preservative 08/28/2019 Influenza, Quadrivalent, Pre servative Free 07/28/2020 Influenza, Quadrivalent, Wit h Preservative 08/25/2017,08/25/2017 Influenza, Unspecified 09/02/2021,2018,08/02/2017,08/19 MMR 06/21/2012, 2,05/07/2012,05/07 Meningococcal MCV4P 05/11/2019,04/18/2019,2018 Meningococcal, Unspecified 04/18/2019 Pfizer SARS-COV-2 05/16/2021,,02/15/2021,01/25,01/25/2021 Pneumococcal Conjugate 13-Valent 12/15/2017 Pneumococcal Polysaccharide 02/16/2018,0 01/11/2018,01/11/2018,08/14 TD Preservative Free 03/14/2015 Td, Unspecified 03/14/2015 Tdap 05/07/2012,05/07/2012 Typhoid, Unspecified 05/11/2019 Zoster 09/16/2013,09/16/2013 Family History Relation Status Comments Father Mother Alive Social History Tobacco Use Types Packs/Day Years [...] on file Sexual Orientation Not on file Last Filed Vital Signs Vital Sign Reading Time Taken Comments Blood Pressure 120/72 11/25/2023 10:09 AM EST Pulse 75 11/25/2023 10:09 AM EST Temperature - - Respiratory Rate - - Oxygen Saturation 98% 11/25/2023 10: 09 AM EST Inhaled Oxygen Concentration - - Weight 77.5 kg (170 lb 12.8 oz) 024 10:09 AM EST Height 152.4 cm (5') 10/15/2021 2:19 PM EST Body Mass Index 33.36 10/15/2021 2:19 PM EST Plan of Treatment Health Maintenance Due Date Last Done Comments Breast Cancer Screening 1965 Hepatitis B Vaccine (1 of 3 - 19+ 3-dose series) 1984 05/07/2012, 05/07/2012 Colonoscopy (Post-Transplant Patient) 12/19/2020 Mammogram (Post-Transplant Patient) 12/19/2020 Pelvic Exam (Post-Transplant Patient) 12/19/2020 Influenza Vaccine (#1) 2024 , 07/28/2020, 08/28/2019, Additional history exists Pneumococcal Vaccine: Pediat rics (0 to 5 Years) and At-Risk Patients (6 to 64 Years) (4 of 4 - PPSV23 or PCV20) 2030 02/16/2018, 01/11/2018, 01/11/2018, Additional history exists Insurance [place]ICAID [place] Member Subscriber Plan / Payer (Ef fective 2021-Present) Name:Miryam Calero Relation to Subscriber:Self Name:Miryam Calero Payer ID:Not on file Group ID:Not on file Type:Not on file Address: [address] MED[place]ID [place] Member Subscriber Plan / Payer (Ef fective 2021-Present) Name:Miryam Calero Relation to Subscriber:Self Name:Miryam Calero Payer ID:Not on file Group ID:Not on file Type:Not on file Address: [address] Care Teams Bridge Maintenance Worker Relationship Specialty Start Date End Date Therese Hamilton NP PCP - General Nurse Practitioner 01/08/22
--- OUTSIDE RECORDS SUMMARY | 2025-01-03 14:57 | XMS_ITS | Continuity of Care Document ---
Author Organization [facility] Address [address] [place] [address], [address] Floor, [address] [place] [address]- Care Team Providers Care Supply Chain Design Manager Name Role Phone Sandrine Kerr Primary Care Physician Encounter [facility] Date(s): 11/24/24 - 12/24/24 [facility] [address] [place] [address] [address] Floor, [address] [place] [id number] Attending Physician: AdmMarylou kendrick Admitting Physician: AdmtrMarylou Referring Physician: Admtr ArKellee Encounter Type: Triage Allergies, Adverse Reactions, Alerts [...] Note: PCP 3Admin Note: Dialysis 4Admin Note: [facility] 5Admin Note: By Dialysis 6Admin Note: [facility] 7Admin Note: [facility] Medications Afluria Preservative-Free [id number] intramuscular suspension 0.5 mL, Intramuscular, Once, # 0.5 mL, 0 Refills, Soft Stop, 08/19/16 9:00:00 AM EDT Start Date: 08/19/16 Stop Date: 08/20/16 Status: Ordered Quantity: 0.5 Unit: mL Repeat number: 1 aspirin 81 mg oral delayed release tablet 81 mg, By Mouth, Daily, # 30 tablet, Refills 0, Tot. Refills 0, Maintenance, 09/02/24 11:14:00 AM EDT, Route to Pharmacy Electronically, [facility]/pharmacy #[id number], Partial fill upon patient request if [...] 2 Refills, Maintenance, 09/22/24 1:59:00 PM EST, [facility]/pharmacy #[id number], Partial fill upon patient request if [...] 11 Refills, Maintenance, 03/09/23 2:45:00 PM EDT, [facility]/pharmacy #[id number], Partial fill upon patient requestif the [...] 9:27:36 AM EDT, Route to Pharmacy Electronically, [facility]/pharmacy #[id number] Start Date: 03/27/16 Stop Date: 09/23/16 Status: Ordered Quantity: 30.0 Unit: tablet Repeat number: 6 gabapentin 100 mg oral capsule 200 mg, 2, capsule, By Mouth, 2 times a day, # 120 capsule, Refills 5, Tot. Refills 5, Maintenance,11/21/16 2:07:42 PM EST, Route to Pharmacy Electronically, [facility]/pharmacy #[id number] Start Date: 11/21/16 Stop Date: 05/20/17 [...] Refills, Maintenance, 12/29/16 10:47:18 AM EST, Tablet, [facility]/pharmacy #[id number] Start Date: 12/29/16 Status: Ordered Quantity: [...] 3:52:00 PM EDT, Route to Pharmacy Electronically, [facility]/pharmacy #[id number], Partial fill upon patient requestif the [...] Maintenance, 02/09/17 4:29:44 PM EDT, EC Tablet, [facility], please deliver Start Date: 02/09/17 Stop Date: 02/04/18 Status: Ordered Quantity: 180.0 Unit: tablet Repeat number: 12 nitroglycerin 0.4 mg sublingual tablet 1 tablet = 0.4 mg, Sublingual, Every 5 minutes, PRN for chest pain, # 100 tablet, 3 Refills, Maintenance, 02/10/24 3:50:00 PM EDT, Tablet, [facility]/pharmacy #[id number], 161, cm, 02/10/24 15:34:00 EDT, Height, [...] Refills, Maintenance, 10/03/24 9:52:00 AMEST, DIS Tablet, [facility]/pharmacy #[id number], Partial fill upon patient request if [...] 5 Refills, Maintenance, 07/29/24 3:58:00 PM EDT, [facility]/pharmacy #[id number], Partial fill upon patient request if [...] Member Role: Lifetime Consulting Physician Address: [address] [facility] [address] [facility], [place] [address]- [employer] Telecom: Name: Jadon Rodriguez MD Position: [facility] Renal MD Member Role: Lifetime Consulting Physician Address: [address] [place] [address] [address] [facility] [place] [address]- [employer] Telecom: Name: Theodora Horner RN Position: [facility] RN Member Role: Primary Care Nurse Name: Sandrine Kerr Position: [facility] Outreach Member Role: PCP Address: [address] [place] [address]- TP Telecom: Care Team Related Persons Name: LUIS DANIEL GUNTER Name: ISHAN REYES Insurance Providers Guarantor name: MARTA LEGERValeria [employer] Plan Information #: 1 Payer: [employer] Member Number: NA Policy Number: NA Group Number: NA
--- OUTSIDE RECORDS SUMMARY | 2025-01-03 14:57 | XMS_ITS | Continuity of Care Document ---
Author Organization [facility] Address [address] [place] [address], [address] Floor, [address] [place] [address]- Care Team Providers Care Chiseler Head Name Role Phone Sandrine Kerr Primary Care Physician [phone] Encounter [facility] Date(s): 09/06/24 - 12/24/24 [facility] [address] [place] [address] [address]rd Floor, [address] [place] [address] Attending Physician: Gen PAYNE, Yoon Murdock Admitting Physician: Gen PAYNE, Yoon Murdock Referring Physician: Sandrine Kerr Encounter Type: Pre-OutPatient One Time Allergies, Adverse [...] Note: PCP 3Admin Note: Dialysis 4Admin Note: [facility] 5Admin Note: By Dialysis 6Admin Note: [facility] 7Admin Note: [facility] Medications Afluria Preservative-Free [id number] intramuscular suspension 0.5 mL, Intramuscular, Once, # 0.5 mL, 0 Refills, Soft Stop, 08/19/16 9:00:00 AM EDT Start Date: 08/19/16 Stop Date: 08/20/16 Status: Ordered Quantity: 0.5 Unit: mL Repeat number: 1 aspirin 81 mg oral delayed release tablet 81 mg, By Mouth, Daily, # 30 tablet, Refills 0, Tot. Refills 0, Maintenance, 09/02/24 11:14:00 AM EDT, Route to Pharmacy Electronically, [facility]/pharmacy #[id number], Partial fill upon patient request if [...] 2 Refills, Maintenance, 09/22/24 1:59:00 PM EST, [facility]/pharmacy #[id number], Partial fill upon patient request if [...] 11 Refills, Maintenance, 03/09/23 2:45:00 PM EDT, [facility]/pharmacy #[id number], Partial fill upon patient requestif the [...] 9:27:36 AM EDT, Route to Pharmacy Electronically, [facility]/pharmacy #[id number] Start Date: 03/27/16 Stop Date: 09/23/16 Status: Ordered Quantity: 30.0 Unit: tablet Repeat number: 6 gabapentin 100 mg oral capsule 200 mg, 2, capsule, By Mouth, 2 times a day, # 120 capsule, Refills 5, Tot. Refills 5, Maintenance,11/21/16 2:07:42 PM EST, Route to Pharmacy Electronically, [facility]/pharmacy #[id number] Start Date: 11/21/16 Stop Date: 05/20/17 [...] Refills, Maintenance, 12/29/16 10:47:18 AM EST, Tablet, [facility]/pharmacy #[id number] Start Date: 12/29/16 Status: Ordered Quantity: [...] 3:52:00 PM EDT, Route to Pharmacy Electronically, [facility]/pharmacy #[id number], Partial fill upon patient requestif the [...] Maintenance, 02/09/17 4:29:44 PM EDT, EC Tablet, [facility], please deliver Start Date: 02/09/17 Stop Date: 02/04/18 Status: Ordered Quantity: 180.0 Unit: tablet Repeat number: 12 nitroglycerin 0.4 mg sublingual tablet 1 tablet = 0.4 mg, Sublingual, Every 5 minutes, PRN for chest pain, # 100 tablet, 3 Refills, Maintenance, 02/10/24 3:50:00 PM EDT, Tablet, [facility]/pharmacy #[id number], 161, cm, 02/10/24 15:34:00 EDT, Height, [...] Care Team Personnel Name: Ida Sharma Position: [facility] AMB Nurse Member Role: Lifetime Consulting Physician Name: Ray Irene MD Position: [facility] Outreach Member Role: Lifetime Consulting Physician Address: [address] [facility] [address] [facility] [place] [address] [employer] Telecom: Name: Jadon Rodriguez MD Position: [facility] Renal MD Member Role: Lifetime Consulting Physician Address: [address] [facility] [place] [address]- [place] Telecom: Name: Theodora Horner RN Position: [facility] RN Member Role: Primary Care Nurse Name: Sandrine Kerr Position: [facility] Outreach Member Role: PCP Address: [address] [place] [address]- [place] Telecom: Care Team Related Persons Name: LUIS DANIEL GUNTER Name: ISHAN REYES Insurance Providers Guarantor name: MARTA ALVARADO Health Plan Information #: 1 Payer: [employer] Member Number: [id number] Policy Number: NA Group Number: NA Health Plan Information #: 2 Payer: [employer] Member Number: [id number] Policy Number: NA Group Number: NA
--- OUTSIDE RECORDS SUMMARY | 2025-01-03 14:57 | XMS_ITS | Encounter Summary ---
Author Organization [facility] [place] [address] Care Team Providers Care Respite Provider Name Role Phone Brit Vasquez Primary Care Provider [phone] Reason for Referral * Imaging (Routine) - Closed Specialty Diagnoses / Procedures Referred By Contac t Referred To Contact Radiology Diagnoses Post-menopausal Procedures BD Bone Density DXA Axial Skeleton Brit Vasquez PA [address] [place] [address] Phone: tel: fax: [address] [address] Phone: tel: Referral ID Status Reason Start Date Expiration Date Visits Re quested Visits Authorized [id number] Closed 08/20/2024 08/20/2025 1 1 Reason for Visit * Imaging (Routine) - Closed Specialty Diagnoses / Procedures Referred By Contac t Referred To Contact Radiology Diagnoses Post-menopausal Procedures BD Bone Density DXA Axial Skeleton Brit Vasquez PA [address] [place] [address] Phone: tel: fax: [address] [address] Phone: tel: Referral ID Status Reason Start Date Expiration Date Visits Re quested Visits Authorized [id number] Closed 08/20/2024 08/20/2025 1 1 Encounter Details Date Type Department Care Team (Latest Contact Info) Description 12/27/2024 1:47 PM EST - 12/27/2024 11:59 PM EST Hospital Encounter [facility] Bone Density [address] [place] [address] Post-menopausal Discharge Disposition: Home or Self Care Social History Tobacco Use Types Packs/Day Years Used Date Smoking Tobacco: Never Smokeless Tobacco: Never Comments Unknown Sex and Gender Information Value Date Recorded Sex Assigned at Not on file Legal Sex Female 9:35 AM EST Gender Identity Not on file Sexual Orientation Not on file documented as of this encounter Discharge Disposition Disposition Code Departure Means Destination Home or Self Care documented in this encounter Plan of Treatment Not on file documented as of this encounter Procedures Procedure Name Priority Date/Time Associated Diagnosis Comments BD BONE DENSITY DXA AXIAL SKELETON Routine 12/27/2024 2:17 PM EST Post-menopausal documented in this encounter Results * BD Bone Density DXA Axial Skeleton (12/27/2024 2:17 PM EST) Anatomical Region Laterality Modality Wrist, Hip, L-spine Bone Densito metry 12/27/2024 5:28 PM EST Impressions 12/27/2024 5:29 PM EST Normal bone mineral density. ? [facility] ([id number]) -------- FINAL REPORT -------- Dictated By: Susan Conti Dictated Date: 12/27/2024 17:28 ET Assigned Physician: Susan Conti Reviewed and Electronically Signed By: Susan Conti Signed Date: 12/27/2024 17:29 ET Workstation ID: [id number] Transcribed By: Self Edit Transcribed Date: 12/27/2024 17:28 ET Narrative 12/27/2024 5:29 PM EST History: Low estrogen state due to menopause. Status post kidney transplant. Comparison: No comparison imaging at this institution. Findings: Bone densitometry is performed utilizing dual energy x-ray absorptiometry (DXA) in the adQ unit. The lumbar spine and proximal femora are evaluated in the AP projection. The FRAX questionaire was completed. The results indicate normal bone mineral density, with a right femoral neck T- score of -1.0. The Z score is -0.2, indicating bone mineral density within the range of normal for age. ??The detailed DEXA report will be mailed to the referring physician's office. DualFemur FRAX: 10-year Probability of Fracture: Major Osteoporotic 6.7 percent ??Hip 0.4 percent. Procedure Note Susan Conti MD - 12/27/2024 History: Low estrogen state due to menopause. Status post kidneytransplant. Comparison: No comparison imaging at this institution. Findings: Bone densitometry is performed utilizing dual energy x-ray absorptiometry(DXA) in the adQ unit. The lumbar spine and proximal femora areevaluated in the AP projection. The FRAX questionaire was completed. The results indicate normal bone mineral density, with a right femoralneck T- score of -1.0. The Z score is -0.2, indicating bone mineral densitywithin the range of normal for age. The detailed DEXA report will bemailed to the referring physician's office. DualFemur FRAX: 10-year Probability of Fracture: Major Osteoporotic 6.7percent Hip 0.4 percent. IMPRESSION: Normal bone mineral density. [facility] ([id number]) -------- FINAL REPORT -------- Dictated By: Susan Conti Dictated Date: 12/27/2024 17:28 ET Assigned Physician: Susan Conti Reviewed and Electronically Signed By: Susan Conti Signed Date: 12/27/2024 17:29 ET Workstation ID: [id number] Transcribed By: Self Edit Transcribed Date: 12/27/2024 17:28 ET us Brit SAAB IMG DXA PROCEDURES Final Resul t documented in this encounter Visit Diagnoses Diagnosis Post-menopausal Asymptomatic postmenopausal status (age-related) (natural) documented in this encounter Care Teams Respite Provider Relationship Specialty Start Date End Date Brit Vasquez PA [address] [place] [phone] PCP - General Physician Stereotyper 09/30/24 documented as of this encounter
--- OUTSIDE RECORDS SUMMARY | 2025-01-03 14:57 | XMS_ITS | Encounter Summary ---
Author Organization [facility] [place] [address] Care Team Providers Care Distributing Clerk Name Role Phone Brit Vasquez Primary Care Provider [phone] Reason for Visit * Consultation (Routine) - Authorized Specialty Diagnoses / Procedures Referred By Contbette t Referred To Contact Physical Therapy Diagnoses Scoliosis Brit Vasquez PA [address] [place] [address] Phone: tel: fax: [facility] [address] [address] Phone: tel: fax: Referral ID Status Reason Start Date Expiration Date Visits Requested Visits Authorized [id number] Authorized Specialty Services Required 09/09/2024 09/09/2025 20 20 Encounter Details Date Type Department Care Team (Late st Contact Info) Description 12/12/2024 2:30 PM EST Treatment [address] [phone] Fawn Llanes PT Chronic back pain greater than 3 months [...] as of this encounter Progress Notes * Fawn Llanes PT - 12/12/2024 2:30 PM EST [facility] - Outpatient PHYSICAL THERAPY DAILY TREATMENT NOTE - OP Date: 12/12/2024 Visit Number: [id number] Patient Name: Miryam Bolton : 1965 Age: [...] *No Product type* / Patient Identified by: Fawn Llanes PT Language: Speaks and understands Irish as preferred language with no automotive parts interpreter required Medications: No current outpatient medications on file prior to visit. No current facility-administered medications on file prior to visit. Allergies: has no allergies on file. Precautions: None Fall risk: No SUBJECTIVE Subjective Report: Patient reports she has not gotten inserts yet due to her schedule being busy with her son getting . Chart Reviewed: Yes Pain: reports 4-5/10 achy pain in low back TREATMENT INTERVENTION: UBE 5 min backwards L1 Seated Hamstring stretching 3 x 20 sec each with 4 inch step Seated ankle pumps with knee extended (LAQ) 10 reps Rows green theraband rows and shoulder ext 20 each TA push into ball in hooklying 10 second holds, x10 HL Hip ADD with small ball 10 sec hold x 10 reps Hip Abd against Bath Band with PT in HL x20 Piriformis Stretching 3 x 20 reps ASSESSMENT/Response to Treatment Good The patient tolerated therapeutic exercise well with minimal complaints of discomfort in her back. She was instructed to continue with stretches at home to improve core stability. She was also instructed to look into getting inserts for shoes. HEP: HL Hip Abd with theraba with [...] of Care; Participants: Patient Interventions Time Entry: Therapeutic procedures: Therapeutic Exercise Time Entry: 26 Total Treatment Time: 26 mins Documentation completed by Fawn Llanes PT documented in this encounter Plan of Treatment Not on file documented as of this encounter Visit Diagnoses Diagnosis Chronic back pain greater than 3 months duration- Primary Other idiopathic scoliosis, thoracic region documented in this encounter Care Teams Distributing Clerk Relationship Specialty Start Date End Date Brit Vasquez PA [address] [place] [address] PCP - General Physician Clinical Cytogeneticist Scientist 09/30/24 documented as of this encounter
--- OUTSIDE RECORDS SUMMARY | 2025-01-03 14:57 | XMS_ITS | Clinical Summary ---
Author Organization [facility] Address [address] [place] [address] Phone Care Team Providers Care Head Loader Name Role Phone Brit Vasquez Primary Care Provider [phone] Encounters Date Type Department Care Team Description 12/27/2024 1:47 PM EST - 12/27/2024 11:59 PM EST Hospital Encounter [facility] Bone Density [address] [place] [phone] Post-menopausal Discharge Disposition: Home or Self Care 12/12/2024 2:30 PM EST Treatment [facility] [address] [phone] Fawn Llanes, SANJIV Chronic back pain greater than 3 months duration (Primary Dx); Other idiopathic scoliosis, thoracic region 12/05/2024 2:30 PM EST Treatment [facility] [address] [phone] Napoleon Moreno, SAP BW DEVELOPER Chronic back pain greater than 3 months duration (Primary Dx); Other idiopathic scoliosis, thoracic region 11/21/2024 4:00 PM EST Treatment [facility] [address] [phone] Fawn Llanes, SANJIV Other idiopathic scoliosis, thoracic region (Primary Dx); Chronic back pain greater than 3 months duration 11/08/2024 1:30 PM EST Evaluation [facility] [address] [phone] Belinda Huff, PT Chronic back pain greater than 3 months duration (Primary Dx); Scoliosis from Last 3 Months Surgical History Surgery Date Site/Laterality Comments OTHER SURGICAL HISTORY 02/2016 PROCEDURE: PA RENAL ALTRNSPLJ IMPLTJ GRF W/O MOBILE UI DEVELOPER NEPHRECTOMY Medical History Medical History Date Comments Eczema 01/27/2017 DX:Eczema Hypothyroidism 01/27/2017 DX:Hypothyroidis m Hyperlipidemia 01/27/2017 DX:Hyperlipidemi a S/P kidney transplant 01/27/2017 DX:S/P kid leslie transplant OAB (overactive bladder) 01/27/2017 DX:OAB (overactive bladder) Peripheral neuropathy 01/27/2017 DX:Periphe ral neuropathy Hypertension 01/27/2017 DX:Hypertension History of abnormal cervical Pap smear 01/27/2017 DX:History of abnormal cervical Pap smear; COMMENT: Per old records; specific abnormality not noted Social History Tobacco Use Types Packs/Day Years Used Date Smoking Tobacco: Never Smokeless Tobacco: Never Comments Unknown Sex and Gender Information Value Date Recorded Sex Assigned at Not on file Legal Sex Female 9:35 AM EST Gender Identity Not on file Sexual Orientation Not on file Obstetrics History Plan of Treatment Health Maintenance Due Date Last Done Comments Breast Cancer Screening 1965 Cervical Cancer Screening: Pap Smear 1986 Hepatitis B Vaccines (2 of 3 - 19+ 3-dose series) 06/04/2012 05/07/2012 Zoster Vaccines (1 of 2) 11/11/2013 09/16/2013 Cholesterol Screening (Lipid Panel) 09/29/2022 Colorectal Cancer Screening: Colonoscopy 09/29/2022 HIV Screening 09/29/2022 Hepatitis C Screening 09/29/2022 Social Influencers of Health Screening 09/29/2022 Hypertension/CHF/CAD Annual BMP Blood Test 10/15/2022 05/11/2018 Pneumococcal Vaccine: 50+ Years (4 of 4 - PCV20 or PCV21) 02/16/2023 02/16/2018, 01/11/2018, 12/15/2017, Additional history exists Pneumococcal Vaccine: Pediatrics (0 to 5 Years) and At-Risk Patients (6 to 64 Years) (4 of 4 - PCV20 or PCV21) 02/16/2023 02/16/2018, 01/11/2018, 12/15/2017, Additional history exists COVID-19 Vaccine (4 - season) 2024 05/16/2021, 02/15/2021, 01/25/2021 Influenza Vaccine (#1) 2024 2, 09/02/2021, 09/01/2021, Additional history exists DTaP,Tdap,and Td Vaccines (4 - Td or Tdap) 03/14/2025 03/14/2015, 03/14/2015, 05/07/2012 Depression Screening 11/22/2025 11/22/2024 Osteoporosis Screening (Bone Density Screening) 12/27/2034 12/27/2024 RSV Immunization Patients 60+ Years Old (1 - 1-dose 75+ series) 2040 MMR Vaccines Aged Out 06/21/2012, 05/07/2012 No lo nger eligible based on patient's age to complete this topic Meningococcal B Vacine Aged Out 04/18/2019 No lo nger eligible based on patient's age to complete this topic Meningococcal ACWY Vaccine Aged Out 05/11/2019, No longer eligible based on patient's age to complete this topic HIB Vaccines Aged Out No longer eligi ble based on patient's age to complete this topic HPV Vaccines Aged Out No longer eligi ble based on patient's age to complete this topic Hepatitis A Vaccines Aged Out No long er eligible based on patient's age to complete this topic IPV Vaccines Aged Out No longer eligi ble based on patient's age to complete this topic RSV Immunization Patients Under 20 months Aged Out No longer eligible based on patient's age to complete this topic Varicella Vaccines Aged Out No longer eligible based on patient's age to complete this topic Procedures Procedure Name Priority Date/Time Associated Diagnosis Comments BD BONE DENSITY DXA AXIAL SKELETON Routine 12/27/2024 2:17 PM EST Post-menopausal from Last 3 Months Results * BD Bone Density DXA Axial Skeleton (12/27/2024 2:17 PM EST) Anatomical Region Laterality Modality Wrist, Hip, L-spine Bone Densito metry 12/27/2024 5:28 PM EST Impressions 12/27/2024 5:29 PM EST Normal bone mineral density. ? [facility] ([id number]) -------- FINAL REPORT -------- Dictated By: Susan Conti Dictated Date: 12/27/2024 17:28 ET Assigned Physician: Susan Conti Reviewed and Electronically Signed By: Susan Conti Signed Date: 12/27/2024 17:29 ET Workstation ID: [id number] Transcribed By: Self Edit Transcribed Date: 12/27/2024 17:28 ET Narrative 12/27/2024 5:29 PM EST History: Low estrogen state due to menopause. Status post kidney transplant. Comparison: No comparison imaging at this institution. Findings: Bone densitometry is performed utilizing dual energy x-ray absorptiometry (DXA) in the Peekigy unit. The lumbar spine and proximal femora [...] utilizing dual energy x-ray absorptiometry(DXA) in the [employer]rionics Prodigy unit. The lumbar spine and proximal femora [...] IMPRESSION: Normal bone mineral density. [facility] ([id number]) -------- FINAL REPORT -------- Dictated By: Susan Conti Dictated Date: 12/27/2024 17:28 ET Assigned Physician: Susan Conti Reviewed and Electronically Signed By: Susan Conti Signed Date: 12/27/2024 17:29 ET Workstation ID: [id number] Transcribed By: Self Edit Transcribed Date: 12/27/2024 17:28 ET Brit SAAB IMG DXA PROCEDURES Final Resul t from Last 3 Months Insurance MEDICAID - [place] Care Teams Head Loader Relationship Specialty Start Date End Date Brit Vasquez PA [address] [place] [address] PCP - General Physician Day Care Director 09/30/24
--- OUTSIDE RECORDS SUMMARY | 2025-01-03 14:57 | XMS_ITS | Encounter Summary ---
Author Organization [facility] Address [address] [address] Care Team Providers Care Lap Cutter Name Role Phone Pedro Brit DICKINSON Primary Care Provider [phone] Reason for Visit * Reason Comments Telehealth (Video) Encounter Details Date Type Department Care Team ([facility] st Contact Info) Description 12/13/2024 2:00 PM EST / Visits [facility] [address] [place] [address] Felicia Borges, ONLINE MARKETING SPECIALIST [address] [place] [address] PTSD (post-traumatic stress disorder) (Primary Dx); Mood disorder due to a general medical condition; Mood disorder due to medical condition; ALBERT (generalized anxiety disorder) Social History Tobacco Use Types Packs/Day Years [...] as of this encounter Progress Notes * Felicia JOANN Borges - 12/14/2024 9:29 AM EST The following visit was conducted via Telephone. I educated the patient/guardian on the terms of telehealth and the patient verbally consented to this telemedicine visit. The patient was identified using their Name, and [facility] ID. I identified myself as ENDERJOANN CHATMAN from [facility]. It was conducted in a private space to protect HIPPA sensitive information. Precautions were taken to provide confidentiality and security and patient was made aware of privacy considerations. The patients location was obtained and is [facility] home The patient/guardian was notified that the services were being provided from [place] ([facility]), [place] ([facility]). The patient/guardian was notified how they can see a clinician in-person in the event of an emergency or if otherwise needed. Visit START TIME 2:00 END TIME 2:40 Dye And Chemical Coordinator used during visit? No TOTAL TIME IN SESSION: 45 minutes START/ END TIME: RISK ASSESSMENT: PERSON DENIES SI/HI OTHER PEOPLE PRESENT IN SESSION: NONE PROGRESS SINCE LAST SESSION TOWARD GOALS/OBJECTIVES: Client was very happy, her youngest got over the week end, he moved out from home and she is missing him but she is very happy for him. Now she has 2/3 of her children and she is hoping to find a bride for her oldest son. NEW CONCERNS TODAY: NEED TO COMPLETE COMPREHENSIVE ASSESSMENT AND IAP UPDATES At times worries about her daughter working too hard to manage 2 small children one of them is disable, managing the homeand doing her practicum for becoming a teacher. MOOD: DYSPHORIC AFFECT: FULL RANGE AND CONGRUENT WITH MOOD SPEECH: WNL BEHAVIOR: COOPERATIVE and CALM EYE CONTACT: phone call, no eye contact THOUGHT PROCESSES: WNL ORIENTATION: WNL MEDICAL CONCERNS: NOTHING NEW COMMENT: SUBSTANCE USE: NO HX INTERVENTIONS: Used active listening and acknowledged maintaining gains. Discussed strategies beingused to reduce depressed mood and discussed plans for future successes PERSON'S RESPONSE TO INTERVENTIONS: FULLY ENGAGED and COOPERATIVE PLAN FOR NEXT SESSION: Support client in managing her sx DATE OF NEXT SESSION: 01/10 CLIENT WILL: USE SKILLS TAUGHT IN SESSION and CONSIDER HOW DISCUSSION RELATES TO HIS/HER LIFE documented in this encounter Plan of Treatment Upcoming Encounters Date Type Department Care Team (Late st Contact Info) Description 01/10/2025 2:00 PM EDT / Visits [facility] [address] [place] [phone] Felicia Borges LICSW [address] [place] [address] 01/18/2025 2:00 PM EDT / Visits [address] [phone] Ld Rob HNP [address] [place] [address] documented as of this encounter Visit Diagnoses Diagnosis PTSD (post-traumatic stress disorder)- Primary Posttraumatic stress disorder Mood disorder due to a general medical condition Mood disorder in conditions classified elsewhere Mood disorder due to medical condition Mood disorder in conditions classified elsewhere ALBERT (generalized anxiety disorder) Generalized anxiety disorder documented in this encounter Additional Health Concerns Assessment Noted Time PHQ-9 Depression Total Score: 0 11/22/19 25 2:02 PM PST documented as of this encounter Care Teams Lap Cutter Relationship Specialty Start Date End Date Brit Vasquez PA-C [address] [place] [phone] PCP - General Internal Medicine 05/20/24 documented as of this encounter
== END 2025-01-03 12:19 | disposition home or self-care (01) ==
PROVIDERS: PCP Physician Assistant; Visit Provider Internal Medicine Nephrology
DX: Z94.0 Kidney transplant status (principal); I10 Essential (primary) hypertension
CPT/HCPCS: 99214

== ENCOUNTER → 2025-01-03 11:45 | Outpatient (BNVA) | payer MEDICAID, SELFPAY | PROVIDERS: PCP Physician Assistant; Visit Provider Internal Medicine Nephrology | DX: I10 Essential (primary) hypertension (principal); Z94.0 Kidney transplant status | CPT/HCPCS: 99212 ==

== ENCOUNTER 2025-05-11 14:59 | Outpatient (AMB) | payer MEDICAID, SELFPAY ==
--- OUTSIDE RECORDS SUMMARY | 2025-05-11 15:03 | XMS_ITS | Clinical Summary ---
Author Organization [facility] Address [address] [facility] [address] [place] [address] Phone Care Team Providers Care Nuclear Weapons Custodian Name Role Phone Therese Hamilton NP Primary Care Provider [phone] Allergies Active Allergy Reactions Criticality Noted Date [...] Active LORazepam (ATIVAN) 0.5 MG tabletIndicatio ns:Other senior care current drug therapy Take 1 tablet (0.5 [...] takes it every other day . Active rosuvastatin (CRESTOR) 5 MG tablet TAKE 1 TABLET BY MOUTH 1 TIME EACH DAY. 90 tablet 5 4 Active mycophenolate (MYFORTIC) 180 MG EC tabletIndicatio ns:Kidney replaced by transplant TAKE 2 TABLETS (360 MG TOTAL) BY MOUTH IN THE MORNING AND 2 TABLETS (360 MG TOTAL) IN THE EVENING. 120 tablet 11 5 01/13/20 26 Active Active Problems Problem Noted Date Diagnosed [...] considered in the appropriate clinical setting. 4. Lwwupkvc-bz-xohxhz medial as well as lryx-ak-jzbhrrtx lateral and mild patellofemoral compartment osteoarthritis. Large joint effusion with multiple small loose bodies. Moderate Santo's cyst. Stenosis due to any device, implant AND/OR graft 05/14/2021 Stenosis due to other internal grinder tender al prosthetic devices, implants and grafts, initial [...] 03/29/19 - F/U Dr. Loera Rheum at [facility]: Pt has developed L sided upper trap [...] Overview (05/14/2021): X-rays right knee 10/01/17 at [facility] = degenerative changes and trace joint effusion. 06/11/18 - [facility] F/U for R knee pain: Arthrocentesis of R & L medial knee. Steroid injection b/l knees. C/w Blue Emu cream PRN. F/U PRN. Pain of knee region 09/14/2017 07/28/2023 Overview (07/28/2023): Synovial cyst of right popliteal space 07/28/2021 Overview: MRI right knee (06/30/2020) 1. Complex tearing of the medial meniscus with tibial articular surface and inner margin oblique components. 2. Minimal fraying of the lateral meniscal body inner margin. 3. Edema adjacent to the medial collateral ligament, likely related to the adjacent meniscal tear. A grade 1 sprain could be considered in the appropriate clinical setting. 4. Iafvxhwc-lg-efqfmc medial as well as tjza-ha-gthcuhmo lateral and mild patellofemoral compartment osteoarthritis. Large joint effusion with multiple small loose bodies. Moderate Santo's cyst. Chronic low back pain 07/14/2017 Overview (05/14/2021): 10/01/17 - [facility]: c/o burning discomfort in nec, low [...] of right wrist 07/08/2017 Overview (05/14/2021): Seen [facility] Dr. Garcia 06/25/17 Eczema 01/27/2017 07/28/2023 History of [...] but she was advised to d/c as phone technician use could cause mental status change. Pt interested in other medication option. Urology has no more to offer. Suggested Dr. Borjas for his opinion on surgery. Neuropathy 06/24/2016 Overview (05/14/2021): Upper and lower ext needle likle sensation, chronic, since on Hemodialysis. Cont after transplant EMG upper extremities done 05/21/17 at [facility] = mild right median neuropathy End stage renal disease 12/31/2014 Paroxysmal supraventricular tachycardia 07/16/20 12 Immunizations Immunization Administration Dates Next Due Hepatitis B 05/07/2012,05/07/2012 Influenza LAIV (Nasal) 06/10/2014 Influenza Split High Dose Pr eservative Free IM 09/14/2018,09/02/2018,09/02/2018 Influenza TIV (IM) 08/28/2019,08/02/2017 Influenza, MDCK, Quadrivalen t, with preservative 08/28/2019 Influenza, Quadrivalent, Pre servative Free 07/28/2020 Influenza, Quadrivalent, Wit h Preservative 08/25/2017,08/25/2017 Influenza, Unspecified 09/02/2021,2018,08/02/2017,08/19 MMR 06/21/2012, 2,05/07/2012,05/07 Meningococcal MCV4P 05/11/2019,04/18/2019,2018 Meningococcal, Unspecified 04/18/2019 Pfizer SARS-COV-2 05/16/2021, 1,02/15/2021,01/25,01/25/2021 Pneumococcal Conjugate 13-Valent 12/15/2017 Pneumococcal Polysaccharide 02/16/2018,0 [...] Patient) 12/19/2020 Pelvic Exam (Post-Transplant Patient) 12/19/2020 Pneumococcal Vaccine: 50+ Ye ars (4 of 4 - PCV20 or PCV21) 02/16/2023 02/16/2018, 01/11/2018, 01/11/2018, Additional history exists Influenza Vaccine (#1) 2025 , 07/28/2020, 08/28/2019, Additional history exists Pneumococcal Vaccine: Peds ( 0 to 5 Years) and At-Risk Patients (6 to 49 Years) Discontinued 02/16/2018, 01/11/2018, 01/11/2018, Additional history exists Insurance Medicaid [place] Care Teams Nuclear Weapons Custodian Relationship Specialty Start Date End Date Therese Hamilton, SENIOR SALES ADMINISTRATOR PCP - General Nurse Practitioner 01/08/22
--- OUTSIDE RECORDS SUMMARY | 2025-05-11 15:03 | XMS_ITS ---
Author Name [facility] Organization Unknown Problems Problem Status Onset Date Problem Type Date of Resoluti on Source Complication of transplanted kidney, unspecified complication active EncounterDiagnosisAct CCT Encounters Encounter Type Encounter Reason Primary Diagnosis Location Date Ambulatory Unspecified complication of kidney transplant Unspecified complication of kidney transplant [facility] 02/25/2024 Ambulatory Unspecified complication of kidney transplant [facility] 10/28/2022 Care Team Organization Name Specialty Phone Email Start Date End Da te [facility] MAHESH KHALIL Primary Care 02/01/2024 [facility] PCP,No Primary Care 10/28/2022 01/18/2025 [facility] NO PCP Primary Care 10/06/2022 10/06/2022
--- OUTSIDE RECORDS SUMMARY | 2025-05-11 15:03 | XMS_ITS | Clinical Summary ---
Author Organization [facility] Address [address] [place] [address] Phone Care Team Providers Care Channeling Machine Operator Name Role Phone Brit Vasquez Primary Care Provider [phone] Surgical History Surgery Date Site/Laterality Comments OTHER SURGICAL HISTORY 02/2016 PROCEDURE: OK RENAL ALTRNSPLJ IMPLTJ GRF W/O GENERATOR REPAIRER NEPHRECTOMY Medical History Medical History Date Comments [...] on file Obstetrics History Plan of Treatment Upcoming Encounters Date Type Department Care Team ([facility] st Contact Info) Description 06/01/2025 1:45 PM EDT Consult Orthopedic Surgery [facility] [address] [phone] Jigar Bronson, DPM [address] [address] Health Maintenance Due Date Last Done Comments [...] (4 - season) 2024 05/16/2021, 02/15/2021, 01/25/2021 DTaP,Tdap,and Td Vaccines (4 - Td or Tdap) 03/14/2025 03/14/2015, 03/14/2015, 05/07/2012 Influenza Vaccine (#1) 2025 , 09/02/2021, 09/01/2021, Additional history exists Depression Screening 11/22/2025 11/22/2024 Osteoporosis Screening (Bone Density Screening) 12/27/2034 12/27/2024 RSV Immunization Adult Patients (1 - 1-dose 75+ series) 2040 MMR Vaccines Aged Out 06/21/2012, 05/07/2012 No lo nger eligible based on patient's age to complete this topic Meningococcal B Vaccine Aged Out 04/18/2019 No l onger eligible based on patient's age to complete [...] PM EST Post-menopausal from Last 3 Months or Most Recently Relevant to Health Maintenance Results * BD Bone Density DXA Axial Skeleton (12/27/2024 2:17 PM EST) Anatomical Region Laterality Modality Wrist, Hip, L-spine Bone Densito metry 12/27/2024 5:28 PM EST Impressions 12/27/2024 5:29 PM EST Normal bone mineral density. Teleluis angel SAAB ([id number]) -------- FINAL REPORT -------- Dictated By: Susan Conti Dictated Date: 12/27/2024 17:28 ET Assigned Physician: Susan Conti Reviewed and Electronically Signed By: Susan Conti Signed Date: 12/27/2024 17:29 ET Workstation ID: [id number] Transcribed By: Self Edit Transcribed Date: 12/27/2024 17:28 ET Narrative 12/27/2024 5:29 PM EST History: Low estrogen state due to menopause. Status post kidney transplant. Comparison: No comparison imaging at this institution. Findings: Bone densitometry is performed utilizing dual energy x-ray absorptiometry (DXA) in the ProteoMediX unit. The lumbar spine and proximal femora are evaluated in the AP projection. The FRAX questionaire was completed. The results indicate normal bone mineral density, with a right femoral neck T- score of -1.0. The Z score is -0.2, indicating bone mineral density within the range of normal for age. The detailed DEXA report will be mailed to the referring physician's office. [employer]Femur FRAX: 10-year Probability of Fracture: Major Osteoporotic 6.7 percent Hip 0.4 percent. Procedure Note Susan Conti MD - 12/27/2024 History: Low estrogen state due to menopause. Status post kidneytransplant. Comparison: No comparison imaging at this institution. Findings: Bone densitometry is performed utilizing dual energy x-ray absorptiometry(DXA) in the [employer] unit. The lumbar spine and proximal femora [...] IMPRESSION: Normal bone mineral density. Telerad [facility] ([id number]) -------- FINAL REPORT -------- Dictated By: Susan Conti Dictated Date: 12/27/2024 17:28 ET Assigned Physician: Susan Conti Reviewed and Electronically Signed By: Susan Conti Signed Date: 12/27/2024 17:29 ET Workstation ID: [id number] Transcribed By: Self Edit Transcribed Date: 12/27/2024 17:28 ET Brit SAAB IM DXA PROCEDURES Final Resul t from Last 3 Months or Most Recently Relevant to Health Maintenance Insurance MEDICAID - [place] Care Teams Channeling Machine Operator Relationship Specialty Start Date End Date Brit Vasquez PA [facility] [place] [address] PCP - General Physician Benefits Specialist 09/30/24
--- OUTSIDE RECORDS SUMMARY | 2025-05-11 15:03 | XMS_ITS | Clinical Summary ---
Author Organization [facility] Address [address] [place] [address] Care Team Providers Care Meal Room Hand Name Role Phone Therese Hamilton Primary Care Provider Unavailabl e Social History Tobacco Use Types Packs/Day Years Used Date Smoking Tobacco: Never Assessed Comments Unknown Sex and Gender Information Value Date Recorded Sex Assigned at Female 02/02/2024 4:10 PM EDT Legal Sex Female 12:43 PM EST Gender Identity Female 02/02/2024 4:10 PM EDT [...] Zoster (Shingles) Vaccine (1 of 2) 2015 COVID-19 Vaccine (4 - 2023-2 5 season) 2024 05/16/2021, 02/15/2021, 01/25/2021 Influenza Vaccine 06/02/2025 09/02/2021, , 07/28/2020, Additional history exists Insurance [facility] Care Teams Meal Room Hand Relationship Specialty Start Date End Date Therese Hamilton PCP - General Internal Medicine 10/09/22
--- OUTSIDE RECORDS SUMMARY | 2025-05-11 15:03 | XMS_ITS | Clinical Summary ---
Author Organization [facility] Address [facility] [address] [place] [address] Care Team Providers Care Pit Shoveler Name Role Phone Pedro Brit DICKINSON Primary Care Provider + [phone] Source Comments PLEASE NOTE, if this patient [...] Sodium 180 mg TbECIndications:S/ P kidney transplant ([facility]) Take 2 Tabs by mouth 2 (two) times daily PER NEPHRO 07/14/20 17 Active calcifediol (RAYALDEE) 30 mcg [id number]:Hy perparathyroidism ([facility]) Take 30 mcg by mouth every other day PER NEPHRO 07/14/20 17 Active mirabegron (MYRBETRIQ) 50 mg Zl20Nakzdvwxzbc:OA B (overactive bladder) Take 1 Tab by [...] SENSIMIST) 27.5 mcg/actuation nasal spray Place 1 [place] into the nostril(s) 02/22/20 21 Active tacrolimus [...] daily 90 Tablet 4 10/03/20 24 Active cholecalciferol (VITAMIN D-3) 50 mcg (2,000 unit) tabletIndications: Mild vitamin D deficiency Take 1 Tablet by mouth once daily 90 Tablet 3 11/23/19 25 Active sertraline (ZOLOFT) 50 mg tablet Take 1 Tablet by mouth once daily for 180 days 30 Tablet 5 01/19/20 25 025 Active traZODone (DESYREL) 50 mg tabletIndications: Mood disorder due to medical condition,ALBERT (generalized anxiety disorder) Take 0.5 or 1 tablet at bedtime. 30 Tablet 5 04/05/20 25 Active Active Problems Problem Noted Date [...] include valproic acid (very low dose)- if therapeutic case manager (Dr. Wilmar Walker) ok with this. Reviewed potential side effects; pt is postmenopausal; discussed that low dose would be a/w lower side effect risk. For prn migraine care would use nurtec or ubrelvy (if ok with therapeutic case manager) Avoid triptan d/t cardiac hx and known [...] 01/05/2024 Overview (01/05/2024): [place] [facility] [place] [facility] End-stage renal disease ([facility]) 01/10/20 23 Class 1 obesity 01/09/2023 Chronic kidney disease [...] considered in the appropriate clinical setting. 4. Biatolol-gy-tnzipl medial as well as ibeh-vb-iplvxzjk lateral and mild patellofemoral compartment osteoarthritis. Large joint effusion with multiple small loose bodies. Moderate Santo's cyst. Stenosis due to other international marketing coordinator al prosthetic devices, implants and grafts, initial encounter 05/14/2021 Acquired pure red cell aplasia, unspecified ([facility]) 01/18/2021 Secondary hyperparathyroidis m of renal origin ([facility]) 01/18/2021 Chronic neck pain 09/14/2018 Overview (01/21/2023): [...] 03/29/19 - F/U Dr. Loera Rheum at [facility]: Pt has developed L sided upper trap [...] considered in the appropriate clinical setting. 4. Mbwkjnrb-oj-vytevh medial as well as tyrg-zy-dpoollrk lateral and mild patellofemoral compartment osteoarthritis. Large joint effusion with multiple small loose bodies. Moderate Santo's cyst. 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 Pt interested in other medication option. Urology has no more to offer. Suggested Dr. Borjas for his opinion on surgery. 11/14/17 - UROLOGY: Pt has been tried on oxybutynin, darifenancin, trospium, and myrbetric. Myrbetric was not helping. 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 Pt interested in other medication option. Urology has no more to offer. Suggested Dr. Borjas for his opinion on surgery. Neuropathy 06/24/2016 Overview (07/28/2021): Upper and lower ext needle likle sensation, chronic, since on Hemodialysis. Cont after transplant EMG upper extremities done 05/21/17 at [facility] = mild right median neuropathy Upper and lower ext needle likle sensation, chronic, since on Hemodialysis. Cont after transplant EMG upper extremities done 05/21/17 at [facility] = mild right median neuropathy S/P [...] talk to her PCP or see a marketing support assistant. Her Cr has been stable. BP has been well controlled. Good UOP. No proteinuria with optimal volume status. She continues to be on Valtessa MWF for hyperkalemia thought to be secodary to tacrolimus. Compliant with immunosuppressives. Seeing Oumar Williamson ([facility]). Last seen 01/22/2023. A/p below Continue [...] Nephro f/u Dr. Williamson- surgery done at [facility] 11/04/17 - NEPHRO: 1 year biopsy [...] 08/24/19 - NEPHRO F/U: Paroxysmal supraventricular tachycardia (CMS & H HS-HCC) 07/16/2012 Resolved Problems Problem Noted Date Diagnosed [...] considered in the appropriate clinical setting. 4. Llqozaqb-en-bxagzh medial as well as uxst-eq-qupikjnj lateral and mild patellofemoral compartment osteoarthritis. Large joint effusion with multiple small loose bodies. Moderate Santo's cyst. Poisoning by antineoplastic and immunosuppressive drugs(963.1) 01/18/2021 2 Poisoning by antineoplastic and immunosuppressive drugs, accidental [...] Encounters Date Type Department Care Team Description 04/28/2025 7:40 AM EDT Telemedicine Visit [address] [phone] Brit Vasquez PA-C 04/19/2025 2:30 PM EDT BH/MH Visits [facility] [address] [place] [phone] Felicia Borges, VISITOR SERVICE ASSISTANT 04/05/2025 1:00 PM EDT BH/MH Visits [address] [phone] Gala Hackett FNP 03/13/2025 3:45 PM EDT BH/MH Visits [facility] [address] [place] [phone] Felicia Borges, VISITOR SERVICE ASSISTANT 03/13/2025 Interim Notes [address] [phone] Gianna Early MA from Last 3 Months Immunizations Immunization Administration Dates Next Due Flu, Cell Culture based, Mul ti Dose, 6m+, Flucelvax 08/28/2019 Flu, Multi Dose 0.5 ML 08/25/2017 Flu, Preservative Free 07/28/2020 Hep B, Adult/Adol (TOAGIWQ-H-IMQJO/RECOMBIVAX-ADULT) 05/07/2012,05/07/2012 INFLUENZA, SEASONAL, INJECTABLE 09/02/20 21,08/28/2019,08/28/2019,08/02,08/02/2017 INFLUENZA, UNSPECIFIED 09/02/2021,2018,08/02/2017,08/19 Influenza (FLUZONE), high-do se, trivalent, PF 09/14/2018,09/02/2018 Influenza Virus Vaccine (FLU MIST), Live Intranasal 06/10/2014 MENINGOCOCCAL ACWY, UNSPECIFIED 04/18/2019 MENINGOCOCCAL B (Bexsero), OMV 04/18/2019 MENINGOCOCCAL MCV4P (MENACTRA) 05/11/2019,2018,04/18/2019 MMR (MMR II/Priorix) 06/21/2012,06/21/20 12,05/07/2012,05/07 PFIZER COVID VACCINE, PURPLE CAP, 12+ ,02/15/2021,02/15/2021,01/25,01/25/2021 PNEUMOCOCCAL CONJUGATE PCV 13 12/15/2017 PNEUMOCOCCAL POLYSACCHARIDE PPV23 (Pneumovax 23) 02/16/2018,01/11/2018,08/14/2012 TDAP 05/07/2012,05/07/2012 Td (adult), 5 Lf tetanus tox oid ([facility]), preservative free 03/14/2015 Typhoid (Typhim Vi), Vicps 05/11/2019 Typhoid, unspecified 05/11/2019 Zoster, Live Vaccine (Zostavax) 09/16/2013 Social History Tobacco Use Types Packs/Day Years Used Date Smoking Tobacco: Never Smokeless Tobacco: Never Tobacco Cessation:Counseling Given: Not Answered Alcohol Use Standard Drinks/Week Comments No 0 (1 standard drink = 0.6 oz pur e alcohol) Social Connections Answer Date Recorded How often do you feel lonely or isolated from th ose around you? 1 08/16/2024 Financial Resource Strain Answer Date R ecorded Hard to pay for: Food 1 08/16/2024 Stress Answer Date Recorded Do you feel these kinds of stress these days? 2 08/16/2024 Physical Activity Answer Date Recorded Physical Activity 0 07/22/2021 Food Insecurity Answer Date Recorded Hard to pay for: Food 1 08/16/2024 Transportation Needs Answer Date Record ed Hard to pay for: Transportation 1 08/16/2024 Housing Stability Answer Date Recorded Hard to pay for: Rent/Mortgage payment 1 08/16/2024 Safety and Environment Answer Date Margarito rded Safety 0 08/13/2023 Utilities Answer Date Recorded Hard to pay for: Utilities 1 08/16 Employment Answer Date Recorded Stress 0 07/22/2021 [...] 91 11/22/2024 2:05 PM EST Temperature 36.6 C (97.8 F) 11/22/2024 2:05 PM EST Respiratory Rate 16 11/22/2024 2:05 PM EST Oxygen Saturation 98% 11/22/2024 2:05 PM EST Inhaled Oxygen Concentration - - Weight 78.9 kg (174 lb) 11/22/2024 2:05 PM EST Height 156 cm (5' 1.42 ) 11/22/2024 2:05 PM EST Body Mass Index 32.43 11/22/2024 2:05 PM EST Plan of Treatment Upcoming Encounters Date Type Department Care Team (Late st Contact Info) Description 05/31/2025 2:30 PM EDT / Visits [facility] [address] [place] [phone] Felicia Borges, VISITOR SERVICE ASSISTANT [address] [place] [address] 06/01/2025 1:00 PM EDT / Visits [facility] [address] [place] [phone] Gala Hackett FNP [address] [place] [phone] Health Maintenance Due Date Last Done Comments Dental FMX/Pano 1965 Hepatitis C Screening [address] Colonography 2010 FIT/gFOBT 2010 Fecal DNA 2010 Flexible Sigmoidoscopy 2010 Imm-Hepatitis B (2 of 3 - 19+ 3-dose series) 06/04/2012 05/07/2012, 05/07/2012 Imm-Zoster, Recombinant (1 of 2) 11/11/2013 09/16/2013 HPV Screening 12/03/2021 12/03/2016, 12/03/2016 Breast Cancer Screening (Mammogram) 08/11/2022 08/11/2021, 08/11/2021, 11/08/2018, Additional history exists Imm-Pneumococcal 50+ (4 of 4 - PCV20 or PCV21) 02/16/2023 02/16/2018, 01/11/2018, 12/15/2017, Additional history exists Anxiety Screening 10/13/2023 10/13/2022 Lipid Screening 01/16/2024 01/15/2023, 1203/2022, 01/10/2022 Dental BW 03/05/2024 03/03/2023 Dental Examination 03/05/2024 03/03/2023 Dental Perio Charting 03/05/2024 03/03/2023 Dental Prophy 03/05/2024 03/03/2023 [id number] ( season) 2024 05/16/2021, 02/15/2021, 02/15/2021, Additional history exists Imm-DTaP/Tdap/Td (4 - Td or Tdap) 03/14/2025 03/14/2015, 05/07/2012, 05/07/2012 Colonoscopy 06/27/2025 06/27/2015 Colorectal Cancer Screening 06/27/2025 Imm-Influenza (#1) 2025 10/12/2022, 1 11/02/2020, 09/02/2021, Additional history exists Depression Monitoring 07/29/2025 04/28/2025 , 11/22/2024, 08/16/2024, Additional history exists Annual Wellness (Adult): Indicated (All Coverage) 08/16/2025 08/16/2024, 08/13/2023, 07/22/2021, Additional history exists Diabetes Screening 10/06/2025 10/06/2022, 0 04/02/2022, 01/10/2022, Additional history exists Hypertension Screening (#1) 11/22/2025 Tobacco Screening 04/28/2026 04/28/2025, 08/07/2022 Pap Smear 12/14/2026 12/14/2023, 02/0 11/2016, 12/03/2016, Additional history exists Cervical Cancer Screening 12/14/2028 Pap + HPV 12/14/2028 12/14/2023, 12/03, 12/03/2016, Additional history exists Imm-Meningococcal B Aged Out 04/18/2019 No longe r eligible based on patient's age to complete this topic HIV Screening Completed 01/10/2022 Alcohol and Drug Screen Completed 04/28/20, 11/22/2024, 08/16/2024, Additional history exists Cervical Ablation/Cold-Knife Conization Discontinued Cervical Cryotherapy Discontinued Colposcopy Discontinued Endometrial Biopsy Discontinued Excision/Leep Discontinued HPV Genotyping Discontinued Vaginal Pap Discontinued Vulvoscopy Discontinued Procedures Procedure Name Priority Date/Time Associated Diagnosis Comments REFERRAL TO ORTHOPEDICS Routine 04/27/2025 3:00 AM EDT Chronic pain of right knee OTHER ORDERS SCANNED DOCUMENT 03/03/2025 3:00 AM EDT PAP W/ HPV 12/14/2023 3:00 AM EST [...] Recently Relevant to Health Maintenance Results * REFERRAL TO ORTHOPEDICS (04/27/2025 3:00 AM EDT) 04/27/2025 3:00 AM EDT Brit Vasquez PA-C REFERRAL Final Result * OTHER ORDERS SCANNED DOCUMENT (03/03/2025 3:00 AM EDT) 03/03/2025 3:00 AM EDT Brit Vasquez PA-C SCAN OTHER ORDERS Final Resu lt * PAP W/ HPV (12/14/2023 3:00 AM EST) 12/14/2023 3:00 AM EST Randal Fitzpatrick PA-C LAB - PATHOLOGY AND CYTOLOGY AMBULATORY Final Result * [place] DIGITAL SCREENING MAMMO BILAT W CAD (08/11/2021 4:15 PM EDT) Therese Hamilton AUTOMATIC SCREWMAKER-C IMG MAMMO Edited Resul t - Final * (ABNORMAL) COMPRE METAB PANEL (CMP) (05/11/2018 9:52 AM EDT) GLUCOSE 93 70 - 100 mg/dL [facility] Comment:Reference range appl icable to fasting specimens only BUN 14 5 - 25 mg/dL [facility] CREAT 1.24(H) 0.5 - 1.1 mg/dL [facility] GLOMERULAR FILTRATION RATE 45 [facility] Comment: If patient is -[place], multiply result by 1.21 Chronic Kidney Disease: < 60 ml/min/1.73 square meters Kidney Failure: < 15 ml/min/1.73 square meters SODIUM 138 133 - 145 mmol/L [facility] POTASSIUM 5.2 3.5 - 5.5 mmol/L [facility] CHLORIDE 105 96 - 110 mmol/L [facility] CO2 29 21 - 32 mmol/L [facility] ANION GAP 4 3 - 11 [facility] CALCIUM 9.6 8.5 - 10.5 mg/dL [facility] TOTAL PROTEIN 7.2 6.0 - 8.0 G/dL [facility] ALBUMIN 4.0 3.2 - 5.0 G/dL [facility] BILI, TOTAL 0.7 0.0 - 1.4 mg/dL [facility] SGOT 18 10 - 42 U/L [facility] SGPT 27 10 - 60 U/L [facility] ALK PHOS 85 42 - 121 U/L [facility] Blood specimen (specimen) Blood / Unknown 05/11/2018 9:52 AM EDT 05/11/2018 9:58 AM EDT Narrative [facility] - 05/11/2018 12:26 PM EDT [employer] [address] [place] [address] PT ID [id number] ORD# [id number] [facility]ARATEP LAB - BLOOD DRAW Final Resu lt [facility] [address] [place] [address], * PAP SMEAR W/HPV, HISTORICAL (12/03/2016 3:34 PM EST) PAP SMEAR INTERPRETATION NORMAL NORMAL [facility] HPV (HUMAN PAPILLOMA) NEGATIVE NEGATIVE [facility] Specimen from uterine cervix (specimen) Impressions [facility] - 12/03/2016 3:34 PM EST ThinPrep Pap Low-grade squamous intraepithelial lesion (LSIL) HPV Negative us Provider Walker LAB - PATHOLOGY AND CYTOLOGY AMB ULATORY Final Result [facility] [address] [place] [address], * COLONOSCOPY (06/27/2015 2:34 PM EDT) Impressions Aruna Marsh MA - 06/27/2015 2:34 PM EDT Colonoscopy impressions: normal colonoscopy with mild diverticulosis coli Repeat 10 years us Provider [place] PROCEDURES Final Result from Last 3 Months or Most Recently Relevant to Health Maintenance [place] D[place] [facility] SAF[employer]Y NET DENTAL [address] [place] [address] [employer] Care Teams Pit Shoveler Relationship Specialty Start Date End Date Brit Vasquez PA-C [address] [place] [phone] PCP - General Internal Medicine 05/20/24
--- NOTE | 2025-05-11 15:30 | HO.NEPHOV_ITS ---
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 She had H/O donor transplant many years ago ( 2015). 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 She is following up with neurologist and is going to see hematology to R/O hypercoagulable disorder. She denies any H/O AMR or cellular rejection. She is compliant with her medications. She does not get recurrent UTI's. Her BP has been at goal. She is not a diabetic. She has no significant proteinuria. She has no side effects for immunosuppression. She has H/O hyperkalemia and had been on potassium lowering medications. Her BP has been at goal. She does not take any NSAID's and maintain good hydration. She does not see a inspector scales annually. She denies nausea, vomiting, diarrhea, chest pain, SOB, PND, orthopnea, pedal edema, urinary symptoms, pain over transplant, weight loss, hematuria. She is going to see Dr Eller for right knww replacement evaluation [facility] Medical History (Updated 02/22/24 @ 11:02 by Wilmar Walker MD) CKD (chronic kidney disease) ESRD (end stage renal disease) Surgical History History of kidney transplant Family History Mother Diabetes Maternal Aunt Cancer Maternal Uncle Cancer Social History Alcohol intake: never Patient Tobacco Use Status: Never used Tobacco Review of Systems Const All systems reviewed & are unremarkable except as noted in HPI and below Physical Exam Vital Signs: Last Vital Signs Pulse 62 05/11/25 15:31 BP 124/70 05/11/25 15:31 Pulse Ox 97 05/11/25 15:31 Oxygen Delivery Method Room Air 05/11/25 15:31 BMI result Body Mass Index 31.4 Const General: comfortable and no acute distress Orientation/consciousness: patient oriented x3 HEENT Head: Yes normocephalic Mouth: Normal oral and palatal mucosa present Eyes EOM: EOMs intact bilaterally Neck Neck: Yes supple Resp Auscultation: clear to auscultation bilaterally Cardio Jugular venous distension: no JVD Rate: regular rate GI Palpation (GI): Soft to palpation Auscultation: normal bowel sounds General: Yes no CVA tenderness Back/Spine/Pelvis Back: no CVA tenderness Skin General skin exam: no rashes or lesions noted Neuro General: patient oriented x3 and moves all extremities Extrem General: Yes no pedal edema Assessment & Plan Assessment & Plan (1) History of kidney transplant: Comment: 2015 Code(s): Z94.0 - Kidney transplant status Category: Surgical (2) Hypertension: Code(s): I10 - Essential (primary) hypertension Category: Medical Qualifiers: Hypertension type: primary hypertension Qualified Code(s): I10 - Essential (primary) hypertension Plan S/P renal transplant; Renal functions had been stable Blood pressure at goal; On MMF and tacrolimus No DM or significant proteinuria. No dermatological issues No side effects from immunosuppressive medications; Not on ACEI On Rayaldee . Divalents had been OK. On K lowering medications Tolerating lipid lowering medications.Needs annual dermatology appointment No NSAID's. Good hydration. Sun screens. Follow up labs ordered Answered all questions; Follow up appointment given Orders: Orders Creatinine 3 Months I10 - Essential (primary) hypertension, Z94.0 - Kidney transplant status Blood Urea Nitrogen 3 Months I10 - Essential (primary) hypertension, Z94.0 - Kidney transplant status Calcium 3 Months I10 - Essential (primary) hypertension, Z94.0 - Kidney transplant status Phosphorus 3 Months I10 - Essential (primary) hypertension, Z94.0 - Kidney transplant status Magnesium 3 Months I10 - Essential (primary) hypertension, Z94.0 - Kidney transplant status Aspartate Amino Transferase 3 Months I10 - Essential (primary) hypertension, Z94.0 - Kidney transplant status UA and rflx microscopic 3 Months I10 - Essential (primary) hypertension, Z94.0 - Kidney transplant status Complete Blood Count Auto Diff 3 Months I10 - Essential (primary) hypertension, Z94.0 - Kidney transplant status Electrolytes 3 Months I10 - Essential (primary) hypertension, Z94.0 - Kidney transplant status Alanine Aminotransferase 3 Months I10 - Essential (primary) hypertension, Z94.0 - Kidney transplant status Parathyroid Hormone Intact 3 Months I10 - Essential (primary) hypertension, Z94.0 - Kidney transplant status Vitamin D 25-OH Total 3 Months I10 - Essential (primary) hypertension, Z94.0 - Kidney transplant status Hemoglobin A1c 3 Months I10 - Essential (primary) hypertension, Z94.0 - Kidney transplant status Coding Level of Care Code Est Pt Level 4 (51624) Diagnoses History of kidney transplant Z94.0 Primary hypertension I10 Hypertension type: primary hypertension
[2025-05-11 15:31] VITALS: BP 124/70; PULSE 62; O2SAT 97; BMI 31.4
== END 2025-05-11 16:02 | disposition home or self-care (01) ==
LOC: HO.HKAS 14:59
PROVIDERS: PCP Physician Assistant; Visit Provider Internal Medicine Nephrology
DX: Z94.0 Kidney transplant status (principal); I10 Essential (primary) hypertension
CPT/HCPCS: 99214

== ENCOUNTER → 2025-05-11 14:59 | Outpatient (BNVA) | payer MEDICAID, SELFPAY | PROVIDERS: PCP Physician Assistant; Visit Provider Internal Medicine Nephrology | DX: I10 Essential (primary) hypertension (principal); Z94.0 Kidney transplant status | CPT/HCPCS: 99212 ==

== ENCOUNTER 2025-09-18 10:38 | Outpatient (AMB) | payer MEDICAID, SELFPAY ==
--- NOTE | 2025-09-18 10:48 | HO.NEPHOV ---
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 Sprague is here for a follow-up appointment. She has no history of AMR or cellular mediated rejections no recent infections taking her medications regular she had knee replacement surgery on August 14 since then she is in lot of pain all over the body [facility] Medical History (Updated 09/18/25 @ 11:15 by Brennan Gregg MD) CKD (chronic kidney disease) ESRD (end stage renal disease) Surgical History History of kidney transplant Family History Mother Diabetes Maternal Aunt Cancer Maternal Uncle Cancer Social History Alcohol intake: never Patient Tobacco Use Status: Never used Tobacco Review of Systems Const Details: Const : + body aches, no chills, complains of pain everywhere Eyes: no blurry vision and no change in vision ENT: no bleeding gums and no change in voice, no dizziness Card: no chest pain, no shortness of breath, no orthopnea, no PND Resp: no cough, no excessive phlegm production, no SOB GI: no abdominal pain and no nausea, no vomiting : no hematuria, no urinary frequency and no difficulty voiding Musc: no abnormal gait, no bone pain Neuro: no abnormal movements, no weakness, no dizziness, no abnormal gait and no behavioral changes Psych: no behavioral changes and no change in appetite Endo: no change in body appearance, no fatigue Physical Exam Vital Signs: Last Vital Signs Pulse 74 09/18/25 10:51 BP 130/74 09/18/25 10:51 Pulse Ox 98 09/18/25 10:51 Oxygen Delivery Method Room Air 09/18/25 10:51 BMI result Body Mass Index 30.3 General: not in any acute distress, comfortable, sitting on the chair Nutritional Appearance: well nourished and weight Eyes: normal position, no icterus Neck: No lymphadenopathy, no thyromegaly Resp: bilateral air entry equal, no added sounds present Cardio: normal S1, S2 heard, no murmur heard, no edema GI: soft, nontender, no guarding, no hepatosplenomegaly : bladder normal to inspection, bladder normal to palpation, no renal angle tenderness Skin: no rashes or lesions noted and elasticity normal Neuro: oriented to person, oriented to place, oriented to time and moves all extremities Assessment & Plan Assessment & Plan (1) Hypertension: Code(s): I10 - Essential (primary) hypertension Category: Medical Qualifiers: Hypertension type: primary hypertension Qualified Code(s): I10 - Essential (primary) hypertension (2) History of kidney transplant: Comment: 2016 Code(s): Z94.0 - Kidney transplant status Category: Surgical (3) Hip pain: Code(s): M25.559 - Pain in unspecified hip Category: Medical Plan 60-year-old lady with past medical history of disease donor seen by Dr. Sprague is seen in the clinic today due to uncontrolled blood pressures at home. status post renal transplant: creatinine 0.9, GFR 73 continue tacrolimus 2 mg daily, CellCept 720 b.i.d. most recent tacrolimus level was 3.4 when she was hospitalized for needed placement continue same medications and follow up with Dr. Sprague on October 12 hypertension: blood pressure is well controlled in the clinic, 130/70 continue metoprolol She is mainly here for poor pain control that is affecting her blood pressures leading to SBP about 170 mm Hg at home. She is ready to that this high blood pressures and the pain is going to affect her kidneys. will send her a prescription for tizanidine to take as needed until she can get an appointment with pain management. Referral for Pain Management Clinic has been sent, continue gabapentin 600 mg b.i.d. Asked her to avoid any ibuprofen or naproxen [id number] pain medications except for Tylenol. follow-up for Dr. Sprague on October 12 Orders: Referrals Pain Management Referral M25.559 - Pain in unspecified hip Medications: New tizanidine 6 mg PO TID PRN 30 caps 1RF muscle spasticity 30 days Coding Level of Care Code New Pt Level 4 (51857) Diagnoses Primary hypertension I10 Hypertension type: primary hypertension History of kidney transplant Z94.0 Hip pain M25.559
[2025-09-18 10:51] VITALS: BP 130/74; PULSE 74; O2SAT 98; BMI 30.3
--- OUTSIDE RECORDS SUMMARY | 2025-09-18 21:58 | XMS_ITS | Clinical Summary ---
Author Organization [facility] Address [address] [place] [address] Phone Care Team Providers Care Hyperbaric Technician Name Role Phone Brit Vasquez Primary Care Provider [phone] Surgical History Surgery Date Site/Laterality Comments OTHER SURGICAL HISTORY 02/2016 PROCEDURE: NE RENAL ALTRNSPLJ IMPLTJ GRF W/O DOT NET ARCHITECT NEPHRECTOMY Medical History Medical History Date Comments [...] Last Done Comments Breast Cancer Screening 1965 Colorectal Cancer Screening: Colonoscopy 1965 Cervical Cancer Screening: Pap Smear 1986 Hepatitis B Vaccines (2 of 3 - 19+ 3-dose series) 06/04/2012 05/07/2012 Zoster Vaccines (1 of 2) 11/11/2013 09/16/2013 RSV Immunization Adult Patients (1 - Risk 50-74 years 1-dose series) 2015 Cholesterol Screening (Lipid Panel) 09/29/2022 HIV Screening 09/29/2022 Hepatitis C Screening 09/29/2022 Social Influencers of Health Screening 09/29/2022 Hypertension/CHF/CAD Annual BMP Blood Test 10/15/2022 05/11/2018 Pneumococcal Vaccine: 50+ Years (4 of 4 - PCV20 or PCV21) 02/16/2023 02/16/2018, 01/11/2018, 12/15/2017, Additional history exists Depression Screening 11/02/2024 DTaP,Tdap,and Td Vaccines (4 - Td or Tdap) 03/14/2025 03/14/2015, 03/14/2015, 05/07/2012 COVID-19 Vaccine (4 - 2024- season) 2025 05/16/2021, 02/15/2021, 01/25/2021 Influenza Vaccine (#1) 2025 , 09/02/2021, 09/01/2021, Additional history exists Osteoporosis Screening (Bone Density Screening) 12/27/2034 12/27/2024 MMR Vaccines Aged Out 06/21/2012, 05/07/2012 No [...] 5:29 PM EST Normal bone mineral density. [facility] ([id number]) -------- FINAL REPORT -------- Dictated By: Susan Conti Dictated Date: 12/27/2024 17:28 ET Assigned Physician: Susan Conti Reviewed and Electronically Signed By: Susan Conti Signed Date: 12/27/2024 17:29 ET Workstation ID: [id number] Transcribed By: Self Edit Transcribed Date: 12/27/2024 17:28 ET Narrative 12/27/2024 5:29 PM EST History: Low estrogen state due to menopause. Status post kidney transplant. Comparison: No comparison imaging at this institution. Findings: Bone densitometry is performed utilizing dual energy x-ray absorptiometry (DXA) in the [employer] unit. The lumbar spine and proximal femora [...] utilizing dual energy x-ray absorptiometry(DXA) in the [employer] unit. The lumbar spine and proximal femora [...] IMPRESSION: Normal bone mineral density. [facility] ([id number]) -------- FINAL REPORT -------- Dictated By: Susan Conti Dictated Date: 12/27/2024 17:28 ET Assigned Physician: Susan Conti Reviewed and Electronically Signed By: Susan Conti Signed Date: 12/27/2024 17:29 ET Workstation ID: [id number] Transcribed By: Self Edit Transcribed Date: 12/27/2024 17:28 ET Brit SAAB IMG DXA PROCEDURES Final Resul t from Last 3 Months or Most Recently Relevant to Health Maintenance Insurance MEDICAID - [place] Care Teams Hyperbaric Technician Relationship Specialty Start Date End Date Brit Vasquez PA [address] [place] [address] PCP - General Physician Brick Paver 09/30/24
== END 2025-09-18 11:23 | disposition home or self-care (01) ==
LOC: HO.HKAS 10:39
PROVIDERS: PCP Physician Assistant; Visit Provider Internal Medicine Critical Care Medicine
DX: I10 Essential (primary) hypertension (principal); Z94.0 Kidney transplant status; M25.559 Pain in unspecified hip
CPT/HCPCS: 99204

== ENCOUNTER → 2025-09-18 10:38 | Outpatient (BNVA) | payer MEDICAID, SELFPAY | PROVIDERS: PCP Physician Assistant; Visit Provider Internal Medicine Critical Care Medicine | DX: I10 Essential (primary) hypertension (principal); Z94.0 Kidney transplant status; M25.559 Pain in unspecified hip | CPT/HCPCS: 99202 ==

== ENCOUNTER 2025-10-12 11:15 | Outpatient (AMB) | payer MEDICAID, SELFPAY ==
--- NOTE | 2025-10-12 11:30 | HO.NEPHOV ---
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 She had H/O donor transplant many years ago ( 2015). 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 She denies any H/O AMR or cellular rejection. She is compliant with her medications. She does not get recurrent UTI's. Her BP has been at goal. She is not a diabetic. She has no significant proteinuria. She has no side effects for immunosuppression. Her BP has been at goal. She does not take any NSAID's and maintain good hydration. She does not see a silviculture professor annually. She denies nausea, vomiting, diarrhea, chest pain, SOB, PND, orthopnea, pedal edema, urinary symptoms, pain over transplant, weight loss, hematuria. She had right knee surgery by Dr Eller. [facility] Medical History (Updated 09/18/25 @ 11:15 by Brennan Gregg MD) CKD (chronic kidney disease) ESRD (end stage renal disease) Surgical History History of kidney transplant Family History Mother Diabetes Maternal Aunt Cancer Maternal Uncle Cancer Social History Alcohol intake: never Patient Tobacco Use Status: Never used Tobacco Review of Systems Const All systems reviewed & are unremarkable except as noted in HPI and below Physical Exam Vital Signs: Last Vital Signs Pulse 68 10/12/25 11:32 BP 110/60 10/12/25 11:32 Pulse Ox 98 10/12/25 11:32 Oxygen Delivery Method Room Air 10/12/25 11:32 BMI result Body Mass Index 30.8 Const General: comfortable and no acute distress Orientation/consciousness: patient oriented x3 HEENT Head: Yes normocephalic Mouth: Normal oral and palatal mucosa present Eyes EOM: EOMs intact bilaterally Neck Neck: Yes supple Resp Auscultation: clear to auscultation bilaterally Cardio Jugular venous distension: no JVD Rate: regular rate GI Palpation (GI): Soft to palpation Auscultation: normal bowel sounds General: Yes no CVA tenderness Back/Spine/Pelvis Back: no CVA tenderness Skin General skin exam: no rashes or lesions noted Neuro General: patient oriented x3 and moves all extremities Extrem General: Yes no pedal edema Assessment & Plan Assessment & Plan (1) History of kidney transplant: Comment: 2015 Code(s): Z94.0 - Kidney transplant status Category: Surgical (2) Hypertension: Code(s): I10 - Essential (primary) hypertension Category: Medical Qualifiers: Hypertension type: primary hypertension Qualified Code(s): I10 - Essential (primary) hypertension Plan S/P renal transplant; Renal functions had been stable Blood pressure at goal; On MMF and tacrolimus Increased tacrolimus to 3 mg daily; Repeat levels ordered next week No DM or significant proteinuria. No dermatological issues No side effects from immunosuppressive medications; Not on ACEI On Rayaldee . Divalents had been OK. On K lowering medications Tolerating lipid lowering medications.Needs annual dermatology appointment No NSAID's. Good hydration. Sun screens. Follow up labs ordered Answered all questions; Follow up appointment given Orders: Orders Complete Blood Count Auto Diff 2 Months I10 - Essential (primary) hypertension, Z94.0 - Kidney transplant status Magnesium 2 Months I10 - Essential (primary) hypertension, Z94.0 - Kidney transplant status Aspartate Amino Transferase 2 Months I10 - Essential (primary) hypertension, Z94.0 - Kidney transplant status UA and rflx microscopic 2 Months I10 - Essential (primary) hypertension, Z94.0 - Kidney transplant status Protein Creatinine Ratio, Ur 2 Months I10 - Essential (primary) hypertension, Z94.0 - Kidney transplant status Electrolytes 2 Months I10 - Essential (primary) hypertension, Z94.0 - Kidney transplant status Tacrolimus Prograf 1 Week I10 - Essential (primary) hypertension, Z94.0 - Kidney transplant status TSH reflex Free T4 2 Months I10 - Essential (primary) hypertension, Z94.0 - Kidney transplant status Tacrolimus Prograf 2 Months I10 - Essential (primary) hypertension, Z94.0 - Kidney transplant status Phosphorus 2 Months I10 - Essential (primary) hypertension, Z94.0 - Kidney transplant status Alanine Aminotransferase 2 Months I10 - Essential (primary) hypertension, Z94.0 - Kidney transplant status Blood Urea Nitrogen 2 Months I10 - Essential (primary) hypertension, Z94.0 - Kidney transplant status Creatinine 2 Months I10 - Essential (primary) hypertension, Z94.0 - Kidney transplant status Calcium 2 Months I10 - Essential (primary) hypertension, Z94.0 - Kidney transplant status Medications: Refilled levothyroxine 50 mcg PO DAILY 90 tabs 4RF Coding Level of Care Code Est Pt Level 4 (90019) Diagnoses History of kidney transplant Z94.0 Primary hypertension I10 Hypertension type: primary hypertension
[2025-10-12 11:32] VITALS: BP 110/60; PULSE 68; O2SAT 98; BMI 30.8
== END 2025-10-12 11:49 | disposition home or self-care (01) ==
LOC: HO.HKAS 11:16
PROVIDERS: PCP Physician Assistant; Visit Provider Internal Medicine Nephrology
DX: Z94.0 Kidney transplant status (principal); I10 Essential (primary) hypertension
CPT/HCPCS: 99214

== ENCOUNTER → 2025-10-12 11:15 | Outpatient (BNVA) | payer MEDICAID, SELFPAY | PROVIDERS: PCP Physician Assistant; Visit Provider Internal Medicine Nephrology | DX: I12.0 Hypertensive chronic kidney disease with stage 5 chronic kidney disease or end stage renal disease (principal); N18.6 End stage renal disease; Z94.0 Kidney transplant status; Z79.621 Long term (current) use of calcineurin inhibitor | CPT/HCPCS: 99212 ==